=== PATIENT | female | born 1935 | race Caucasian/White ===

== ENCOUNTER 2017-07-15 16:15 | Emergency (ER) | payer OTHER ==
[~2017-07-15] VITALS: Ht 165.1 cm; Wt 125.6 kg
[~2017-07-15 16:15] MED LIST: ACET325 PO; ACET500 PO; ALBU3IS INH; ALBU3IS NEB; ALBU90OI6 INH; ALBU90OI61 INH; AMOCLA875 PO; AMOX500 PO; ASCO500 PO; ATEN25 PO; ATOR40TA PO; BISA10S PR; BROVANA; BUME1 PO; CHOL10002 PO; CIPR500 PO; CLOP75 PO; CRANBERRY450 MG PO; CVS DISPOSABLE399 ML PR; Clotrimazole-Be15 GM TOP; Colace100 MG PO; DOCU100 PO; FERR325 PO; FLUO10 PO; FLUSAL1005; FLUSAL2505 INH; FURO20 PO; Flagyl500 MG PO; HYDACE5 PO; HYDMETSO; IPRAIS NEB; LACT10SY PO; LEVEMIR FL100 UNIT/1 SC; LEVFLO500 PO; LEVO-T175 MCG; LEVSOD100 PO; LEVSOD175 PO; LORA10 PO; LORA10ER PO; LOSA25 PO; LOVA40 PO; Lovastatin20 MG PO; MESA400ER; METR500 PO; MULVITMIND PO; Milk Of Ma400 MG/5 M PO; NAPR550 PO; NATURAL BALANCE15 ML BOTHEYES; NEBULIZER; NITR100CA PO; OCUVITE EYE +1 EACH PO; OMEP10ER; OMEPRAZOLE MAGN20 MG PO; OXYACE5T PO; OXYACE7.5T PO; OXYGEN; Ocuvite Softge1 EAC1 PO; PIOG15; PIOG30 PO; POTCHL20ER; Prilosec Otc20 MG; Prozac20 MG; Prozac20 MG PO; RISE30; RXOXYACE PO; Synthroid175 MCG PO; THEO100ERA; THEO400; THEO400ER PO; THYR60; TIZANIDINE HCL2 MG PO; TRAM50 PO; TRIHYD5075; TRIHYD5075 PO; Tizanidine HCl2 MG; Ventolin Soln3 ML INH; Vitamin D2000 UNIT PO; ZINC15 PR; ZINC220 PO; ZINC50 MG PO; [UNRECOGNIZED DRUG - OTHER]
[2017-07-15] MEDS ORDERED: POTA10T PO (16:30)
[2017-07-15] MEDS ORDERED: Zithromax250 MG PO (18:46)
[2018-03-01] MEDS ORDERED: Hair, Skin & N1 EACH PO (14:33)
[2018-03-01] MEDS ORDERED: Advair Hfa 230-12 GM (14:36)
[2018-03-01] MEDS ORDERED: BUPR150ER PO (14:37)
[2018-03-01] MEDS ORDERED: CRANBERRY450 MG PO (14:40)
[2018-03-01] MEDS ORDERED: MONT10T PO (14:46)
[2018-03-01] MEDS ORDERED: Zanaflex2 M1 PO (14:47)
== END 2017-07-15 21:02 | disposition home or self-care (01) ==
LOC: ER 16:15
DX: J44.0 Chronic obstructive pulmonary disease with (acute) lower respiratory infection (principal); J18.9 Pneumonia, unspecified organism; I10 Essential (primary) hypertension; E11.9 Type 2 diabetes mellitus without complications; E78.00 Pure hypercholesterolemia, unspecified; E03.9 Hypothyroidism, unspecified; K21.9 Gastro-esophageal reflux disease without esophagitis; Z88.6 Allergy status to analgesic agent; Z88.2 Allergy status to sulfonamides; Z88.8 Allergy status to other drugs, medicaments and biological substances; Z88.1 Allergy status to other antibiotic agents; Z91.048 Other nonmedicinal substance allergy status; Z88.5 Allergy status to narcotic agent; Z79.899 Other long term (current) drug therapy; Z79.4 Long term (current) use of insulin; Z87.891 Personal history of nicotine dependence
CPT/HCPCS: 71046; 94640; 96365; 99283; J0456; J7050

== ENCOUNTER → 2017-08-03 | Outpatient (CLI) | payer OTHER ==
[~2017-08-03] MED LIST changes: +POTA10T PO; +Zithromax250 MG PO
[2017-08-03 06:37] LABS: Bilirubin, Urine Neg (Neg); Blood, Urine 5+ (Neg); Glucose Qualitative, Urine Neg (Neg); Ketones, Urine Neg (Neg); Leukocyte Esterase, Urine 3+ (Neg); Nitrite, Urine Neg (Neg); Protein, Urine 3+ (Neg); Urobilinogen, Urine NORM (Normal)
[2017-08-03 06:42] LABS: Appearance, Urine Cloudy (Clear); Color, Urine Yellow (P-Yellow)
[2017-08-03 06:44] LABS: Bacteria Many /hpf; Red Blood Cells, Urine TNTC /hpf (0-2); Squamous Epithelial Cells Mod /hpf (Few); Transitional Epithelial Cells Few /hpf (0-Rare)
[2017-08-03 06:45] LABS: White Blood Cells, Urine TNTC /hpf (0-5)
== END ==
LOC: LAB UVN 06:09 → EDSTATUS 09:54
PROVIDERS: Nurse Practitioner Family
DX: N39.0 Urinary tract infection, site not specified (principal)
CPT/HCPCS: 81001; 87077; 87086; 87186

== ENCOUNTER → 2017-08-21 | Outpatient (CLI) | payer OTHER ==
[2017-08-21 11:35] LABS: Source, Urine Clean Catch
[2017-08-21 11:47] LABS: Bilirubin, Urine Neg (Neg); Blood, Urine 5+ (Neg); Glucose Qualitative, Urine Neg (Neg); Ketones, Urine Neg (Neg); Leukocyte Esterase, Urine 3+ (Neg); Nitrite, Urine Pos (Neg); Protein, Urine 2+ (Neg); Specific Gravity, Urine 1.015 (1.003-1.022); Urobilinogen, Urine NORM (Normal)
[2017-08-21 11:54] LABS: Appearance, Urine Hazy (Clear); Color, Urine Yellow (P-Yellow)
[2017-08-21 11:58] LABS: Squamous Epithelial Cells Mod /hpf (Few); White Blood Cells, Urine TNTC /hpf (0-5)
[2017-08-21 11:59] LABS: Bacteria Many /hpf
== END ==
LOC: LAB UVN 11:33 → EDSTATUS 13:31
PROVIDERS: Nurse Practitioner Family
DX: N39.0 Urinary tract infection, site not specified (principal)
CPT/HCPCS: 81001; 87077; 87086; 87186

== ENCOUNTER → 2017-09-11 | Outpatient (CLI) | payer OTHER | LOC: LAB 11:39 → LAB SHORT 11:39 | DX: M16.9 Osteoarthritis of hip, unspecified (principal) | CPT/HCPCS: 87070; 87205 ==

== ENCOUNTER → 2017-09-24 | Outpatient (CLI) | payer OTHER ==
[2017-09-24 22:07] LABS: Source, Urine Catheter
[2017-09-24 22:10] LABS: Appearance, Urine Hazy (Clear); Bilirubin, Urine Neg (Neg); Blood, Urine 2+ (Neg); Color, Urine Yellow (P-Yellow); Glucose Qualitative, Urine Neg (Neg); Ketones, Urine Neg (Neg); Leukocyte Esterase, Urine 3+ (Neg); Nitrite, Urine Neg (Neg); Protein, Urine 1+ (Neg); Specific Gravity, Urine 1.015 (1.003-1.022); Urobilinogen, Urine NORM (Normal)
[2017-09-24 22:19] LABS: Bacteria Many /hpf; Red Blood Cells, Urine 0-2 /hpf (0-2); Squamous Epithelial Cells Mod /hpf (Few)
== END ==
LOC: EDSTATUS 11:55 → LAB UVN 21:00
PROVIDERS: Nurse Practitioner Family
DX: N39.0 Urinary tract infection, site not specified (principal)
CPT/HCPCS: 81001; 87077; 87086; 87186

== ENCOUNTER → 2018-01-10 | Outpatient (CLI) | payer OTHER ==
[2018-01-10 16:29] LABS: Source, Urine Clean Catch
[2018-01-10 16:38] LABS: Bilirubin, Urine Neg (Neg); Blood, Urine 5+ (Neg); Glucose Qualitative, Urine Neg (Neg); Ketones, Urine Neg (Neg); Leukocyte Esterase, Urine 2+ (Neg); Nitrite, Urine Neg (Neg); Protein, Urine 2+ (Neg); Urobilinogen, Urine NORM (Normal)
[2018-01-10 16:43] LABS: Appearance, Urine Cloudy (Clear); Color, Urine Yellow (P-Yellow)
[2018-01-10 16:45] LABS: White Blood Cells, Urine 50-100 /hpf (0-5)
[2018-01-10 16:46] LABS: Bacteria Many /hpf; Squamous Epithelial Cells Mod /hpf (Few)
== END ==
LOC: EDSTATUS 11:16 → LAB UVN 15:45
PROVIDERS: Nurse Practitioner Family
DX: R30.0 Dysuria (principal)
CPT/HCPCS: 81001; 87077; 87086; 87186

== ENCOUNTER → 2018-05-04 | Outpatient (CLI) | payer OTHER ==
[~2018-05-04] MED LIST changes: +Advair Hfa 230-12 GM; +BUPR150ER PO; +Hair, Skin & N1 EACH PO; +MONT10T PO; +Zanaflex2 M1 PO
[2018-05-04 14:39] LABS: Appearance, Urine Hazy (Clear); Bilirubin, Urine Neg (Neg); Blood, Urine 4+ (Neg); Color, Urine Yellow (P-Yellow); Glucose Qualitative, Urine Neg (Neg); Ketones, Urine Neg (Neg); Leukocyte Esterase, Urine 3+ (Neg); Nitrite, Urine Pos (Neg); Protein, Urine 2+ (Neg); Urobilinogen, Urine NORM (Normal)
[2018-05-04 14:50] LABS: White Blood Cells, Urine 25-50 /hpf (0-5)
[2018-05-04 14:52] LABS: Bacteria Few /hpf; Squamous Epithelial Cells Few /hpf (Few)
== END ==
LOC: EDSTATUS 10:34 → LAB UVN 14:22
PROVIDERS: Nurse Practitioner Family
DX: N39.0 Urinary tract infection, site not specified (principal)
CPT/HCPCS: 81001; 87077; 87086; 87186

== ENCOUNTER → 2018-05-16 | Outpatient (CLI) | payer OTHER ==
[2018-05-16 13:53] LABS: Source, Urine Clean Catch
[2018-05-16 14:04] LABS: Appearance, Urine Clear (Clear); Bilirubin, Urine Neg (Neg); Blood, Urine 1+ (Neg); Color, Urine Yellow (P-Yellow); Glucose Qualitative, Urine Neg (Neg); Ketones, Urine Neg (Neg); Leukocyte Esterase, Urine 3+ (Neg); Nitrite, Urine Neg (Neg); Protein, Urine Neg (Neg); Specific Gravity, Urine 1.015 (1.003-1.022); Urobilinogen, Urine NORM (Normal)
[2018-05-16 14:47] LABS: Bacteria Rare /hpf; Squamous Epithelial Cells Few /hpf (Few); White Blood Cells, Urine 25-50 /hpf (0-5)
== END ==
LOC: EDSTATUS 09:16 → LAB UVN 11:20
PROVIDERS: Nurse Practitioner Family
DX: N39.0 Urinary tract infection, site not specified (principal)
CPT/HCPCS: 81001; 87077; 87086; 87186

== ENCOUNTER → 2018-06-03 | Outpatient (CLI) | payer OTHER ==
[2018-06-03 18:58] LABS: Source, Urine Clean Catch
[2018-06-03 19:06] LABS: Appearance, Urine Hazy (Clear); Bilirubin, Urine Neg (Neg); Blood, Urine 3+ (Neg); Color, Urine Yellow (P-Yellow); Glucose Qualitative, Urine Neg (Neg); Ketones, Urine Neg (Neg); Leukocyte Esterase, Urine 3+ (Neg); Nitrite, Urine Pos (Neg); Protein, Urine 1+ (Neg); Urobilinogen, Urine NORM (Normal)
[2018-06-03 19:18] LABS: White Blood Cells, Urine TNTC /hpf (0-5)
[2018-06-03 19:19] LABS: Bacteria Many /hpf; Squamous Epithelial Cells Mod /hpf (Few)
== END ==
LOC: LAB UVN 17:55
PROVIDERS: Nurse Practitioner Family
DX: N39.0 Urinary tract infection, site not specified (principal)
CPT/HCPCS: 81001; 87077; 87086; 87186

== ENCOUNTER → 2018-06-16 | Outpatient (CLI) | payer OTHER ==
[2018-06-16 11:35] LABS: Source, Urine Clean Catch
[2018-06-16 12:18] LABS: Appearance, Urine Cloudy (Clear); Bilirubin, Urine Neg (Neg); Blood, Urine 3+ (Neg); Color, Urine Yellow (P-Yellow); Glucose Qualitative, Urine Neg (Neg); Ketones, Urine Neg (Neg); Leukocyte Esterase, Urine 3+ (Neg); Nitrite, Urine Pos (Neg); Protein, Urine 2+ (Neg); Specific Gravity, Urine 1.015 (1.003-1.022); Urobilinogen, Urine NORM (Normal)
[2018-06-16 13:15] LABS: White Blood Cells, Urine TNTC /hpf (0-5)
[2018-06-16 13:19] LABS: Bacteria Many /hpf; Squamous Epithelial Cells Mod /hpf (Few)
== END ==
LOC: LAB UVN 11:34 → EDSTATUS 12:40
PROVIDERS: Nurse Practitioner Family
DX: N39.0 Urinary tract infection, site not specified (principal)
CPT/HCPCS: 81001; 87077; 87086; 87186

== ENCOUNTER → 2018-06-19 | Outpatient (CLI) | payer OTHER | END | disposition home or self-care (01) | LOC: EDSTATUS 12:41 → LAB UVN 17:00 | DX: L98.9 Disorder of the skin and subcutaneous tissue, unspecified (principal) | CPT/HCPCS: 87070; 87205 ==

== ENCOUNTER → 2018-07-22 | Outpatient (CLI) | payer OTHER ==
[2018-07-22 15:20] LABS: Bilirubin, Urine Neg (Neg); Blood, Urine 2+ (Neg); Glucose Qualitative, Urine Neg (Neg); Ketones, Urine Neg (Neg); Leukocyte Esterase, Urine 3+ (Neg); Nitrite, Urine Neg (Neg); Protein, Urine Neg (Neg); Specific Gravity, Urine 1.015 (1.003-1.022); Urobilinogen, Urine NORM (Normal)
[2018-07-22 15:31] LABS: Appearance, Urine Hazy (Clear); Color, Urine Yellow (P-Yellow)
[2018-07-22 15:32] LABS: White Blood Cells, Urine 25-50 /hpf (0-5)
[2018-07-22 15:33] LABS: Amorphous Light (0-Heavy); Bacteria Few /hpf; Mucus Light (0-Heavy); Squamous Epithelial Cells Few /hpf (Few)
== END | disposition home or self-care (01) ==
LOC: EDSTATUS 09:31 → LAB UVN 14:57
DX: N39.0 Urinary tract infection, site not specified (principal)
CPT/HCPCS: 81001; 87077; 87086; 87186

== ENCOUNTER → 2018-11-17 | Outpatient (CLI) | payer OTHER ==
[2018-11-17 18:42] LABS: Source, Urine Clean Catch
[2018-11-17 18:53] LABS: Bilirubin, Urine Neg (Neg); Blood, Urine 3+ (Neg); Glucose Qualitative, Urine Neg (Neg); Ketones, Urine Neg (Neg); Leukocyte Esterase, Urine 3+ (Neg); Nitrite, Urine Pos (Neg); Protein, Urine Neg (Neg); Urobilinogen, Urine NORM (Normal)
[2018-11-17 19:04] LABS: Appearance, Urine Clear (Clear); Color, Urine Yellow (P-Yellow); White Blood Cells, Urine TNTC /hpf (0-5)
[2018-11-17 19:05] LABS: Bacteria Mod /hpf; Squamous Epithelial Cells Few /hpf (Few)
== END | disposition home or self-care (01) ==
LOC: EDSTATUS 13:34 → LAB UVN 18:39
DX: N39.0 Urinary tract infection, site not specified (principal)
CPT/HCPCS: 81001; 87077; 87086; 87186

== ENCOUNTER → 2018-11-29 | Outpatient (CLI) | payer OTHER ==
[2018-11-29 11:56] LABS: Bilirubin, Urine Neg (Neg); Blood, Urine 2+ (Neg); Glucose Qualitative, Urine Neg (Neg); Ketones, Urine Neg (Neg); Leukocyte Esterase, Urine 3+ (Neg); Nitrite, Urine Pos (Neg); Protein, Urine Neg (Neg); Urobilinogen, Urine NORM (Normal)
[2018-11-29 12:16] LABS: Appearance, Urine Hazy (Clear); Color, Urine Yellow (P-Yellow)
[2018-11-29 12:17] LABS: White Blood Cells, Urine 50-100 /hpf (0-5)
[2018-11-29 12:18] LABS: Bacteria Many /hpf; Squamous Epithelial Cells Mod /hpf (Few)
[2018-11-29 12:19] LABS: Transitional Epithelial Cells Rare /hpf (0-Rare)
== END | disposition home or self-care (01) ==
LOC: LAB UVN 11:38 → EDSTATUS 15:17
DX: N39.0 Urinary tract infection, site not specified (principal)
CPT/HCPCS: 81001; 87086

== ENCOUNTER → 2018-12-02 | Outpatient (CLI) | payer OTHER ==
[2018-12-02 08:09] LABS: Appearance, Urine Cloudy (Clear); Bilirubin, Urine Neg (Neg); Blood, Urine 5+ (Neg); Color, Urine Yellow (P-Yellow); Glucose Qualitative, Urine Neg (Neg); Ketones, Urine Neg (Neg); Leukocyte Esterase, Urine 3+ (Neg); Nitrite, Urine Pos (Neg); Protein, Urine 2+ (Neg); Specific Gravity, Urine 1.015 (1.003-1.022); Urobilinogen, Urine NORM (Normal)
[2018-12-02 08:41] LABS: White Blood Cells, Urine TNTC /hpf (0-5)
[2018-12-02 08:42] LABS: Bacteria Many /hpf; Squamous Epithelial Cells Mod /hpf (Few)
[2018-12-02 08:43] LABS: Transitional Epithelial Cells Rare /hpf (0-Rare)
== END | disposition home or self-care (01) ==
LOC: LAB UVN 06:26 → EDSTATUS 15:18
DX: N39.0 Urinary tract infection, site not specified (principal); R30.0 Dysuria
CPT/HCPCS: 81001; 87077; 87086; 87186

== ENCOUNTER → 2018-12-19 | Outpatient (CLI) | payer OTHER ==
[2018-12-19 14:40] LABS: Bilirubin, Urine Neg (Neg); Blood, Urine 4+ (Neg); Glucose Qualitative, Urine Neg (Neg); Ketones, Urine Neg (Neg); Leukocyte Esterase, Urine 3+ (Neg); Nitrite, Urine Pos (Neg); Protein, Urine 2+ (Neg); Urobilinogen, Urine NORM (Normal)
[2018-12-19 15:07] LABS: Appearance, Urine Cloudy (Clear); Color, Urine Yellow (P-Yellow)
[2018-12-19 15:10] LABS: Bacteria Many /hpf; Squamous Epithelial Cells Rare /hpf (Few); White Blood Cells, Urine TNTC /hpf (0-5)
== END | disposition home or self-care (01) ==
LOC: EDSTATUS 12:38 → LAB UVN 14:24
DX: N39.0 Urinary tract infection, site not specified (principal)
CPT/HCPCS: 81001; 87077; 87086; 87186

== ENCOUNTER 2019-03-30 09:21 | Inpatient (IN) | payer OTHER ==
[~2019-03-30] VITALS: Ht 154.9 cm; Wt 113.4 kg
[~2019-03-30 09:21] MED LIST changes: -ALBU3IS NEB; +ARTIFICIAL TEAR15 M2 BOTHEYES; +BUPR100 PO; -BUPR150ER PO; +COLACE CLEAR50 MG PO; +FERSU300 PO; +FLUT1DIS5 INH; +LORATADINE10 MG PO; -NATURAL BALANCE15 ML BOTHEYES; +THERA-D2000 UNIT PO; +ZINC50 M2 PO; -ZINC50 MG PO
[2019-03-30 09:55] LABS: BASOPHILS ABSOLUTE AUTO 0.03 K/mm3 (0.00-0.23); BASOPHILS PERCENT AUTO 0 % (0-2); EOSINOPHILS PERCENT AUTO 0 % (0-6); Hematocrit 38.8 % (33.0-51.0); Hemoglobin 10.8 g/dL (11.5-16.0); IMMATURE GRAN ABSOLUTE AUTO 0.06 K/mm3 (0.00-0.10); IMMATURE GRAN PERCENT AUTO 0 % (0-1); LYMPHOCYTES ABSOLUTE AUTO 0.91 K/mm3 (0.84-5.20); LYMPHOCYTES PERCENT AUTO 7 % (21-46); MONOCYTES ABSOLUTE AUTO 0.69 K/mm3 (0.16-1.47); MONOCYTES PERCENT AUTO 5 % (4-13); Mean Corpuscular HGB 26.5 pg (26.0-34.0); Mean Corpuscular HGB Conc 27.8 g/dL (31.5-36.5); Mean Corpuscular Volume 95 fL (80-100); NEUTROPHILS ABSOLUTE AUTO 11.89 K/mm3 (1.96-9.15); NEUTROPHILS PERCENT AUTO 88 % (41-73); Platelet Count 318 K/mm3 (150-400); RDW Coefficient Variation 14.8 % (11.7-14.2); RDW Standard Deviation 51.9 fL (35.1-46.3); Red Blood Cell Count 4.07 M/mm3 (3.80-5.20); White Blood Cell Count 13.58 K/mm3 (4.00-11.30)
[2019-03-30 10:04] LABS: PO2 Arterial 66.6 mmHg (80-100)
[2019-03-30 10:05] LABS: PCO2 Arterial 87 mmHg (35-45); pH Blood Arterial 7.29 (7.35-7.45)
[2019-03-30 10:09] LABS: Source, Urine Catheter
[2019-03-30 10:15] LABS: Bilirubin, Urine Neg (Neg); Blood, Urine 4+ (Neg); Glucose Qualitative, Urine Neg (Neg); Ketones, Urine 1+ (Neg); Leukocyte Esterase, Urine 3+ (Neg); Nitrite, Urine Neg (Neg); Protein, Urine 3+ (Neg); Specific Gravity, Urine 1.025 (1.003-1.022); Urobilinogen, Urine 2+ (Normal)
[2019-03-30 10:16] LABS: Albumin, Blood 2.6 g/dL (3.4-5.0); Albumin/Globulin Ratio 0.5 (0.8-1.8); Bilirubin, Total 0.2 mg/dL (0.1-1.0); Bun/Creatinine Ratio 18.9 (12.0-20.0); Calcium, Blood 9.7 mg/dL (8.5-10.1); Creatinine, Blood 1.22 mg/dL (0.40-1.00); Globulin, Blood 5.7 g/dL (2.2-4.0); Potassium, Blood 4.6 mmol/L (3.5-5.5); Total Protein, Blood 8.3 g/dL (6.4-8.2); Troponin I 0.177 ng/mL (0.000-0.040)
[2019-03-30 10:18] LABS: Influenza A Negative (NEGATIVE); Influenza B Negative (NEGATIVE)
[2019-03-30 10:23] LABS: Appearance, Urine Hazy (Clear); Color, Urine Yellow (P-Yellow)
[2019-03-30 10:25] LABS: Bacteria Many /hpf; Squamous Epithelial Cells Mod /hpf (Few); White Blood Cells, Urine TNTC /hpf (0-5)
[2019-03-30 10:28] LABS: Amorphous Mod (0-Heavy); Transitional Epithelial Cells Rare /hpf (0-Rare)
[2019-03-30] MEDS ORDERED: ALBU90OI INH (10:33)
[2019-03-30] MEDS ORDERED: MIRALAX17 GM PO (10:34)
[2019-03-30] MEDS ORDERED: ACET325 PO ×2 (10:34→12:33)
[2019-03-30] MEDS ORDERED: BISA10S PR (10:35)
[2019-03-30] MEDS ORDERED: MILK OF MA400 MG/5 M PO (10:35)
[2019-03-30] MEDS ORDERED: METO25ER PO (10:36)
[2019-03-30] MEDS ORDERED: Fleet Enema132 ML PR (10:36)
[2019-03-30] MEDS ORDERED: C-1000 WITH R1000 MG PO (12:13)
[2019-03-30] MEDS ORDERED: ALBU3IS NEB (12:33)
[2019-03-30] MEDS ORDERED: TRAM50 PO (12:33)
[2019-03-30 12:34] LABS: PCO2 Arterial 72.6 mmHg (35-45); PO2 Arterial 89.9 mmHg (80-100); pH Blood Arterial 7.37 (7.35-7.45)
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
--- NOTE | 2019-03-30 15:20 | NUR ---
ER ADMIT PT REPORT RECEIVEDF ROM ER. PT ARRIVED VIA BED ACCOMPANIED BY RN AND R/T. PT AWAKE AND TALKING ON 4L NC. PT SLIDE TO NEW BED WITH 5 ASSIST AND SLIDER SHEET. PT CLEANED UP. OLD LINENS REMOVED. BED BATH GIVEN. EARS FULL OF STUFF. CLEANED. FOLDS AND PHILIPP AREA INTACT. AFTER BED BATH. PLACED ON BIPAP. TOLERATED WELL. CONTINUE POT.
--- NOTE | 2019-03-30 21:58 | NUR ---
CARE ASSUMPTION PT ALERT, ANSWERING SOME Q's. PT NOT WANTING TO BE HERE STATING "YOU CAN'T HOLD ME CAPTIVE." PT LAYING ON L SIDE NOT WANTING TO MOVE OR BE MOVED. PT UNCOMFORTABLE W/ BIPAP, CONTINUALLY FIDGETING W/ MASK. PALOMINO CATH PATENT AND DRAINING. ATTENDS IN PLACE. WILL CONTINUE TO MONITOR AND PROVIDE CARE.
[2019-03-31 03:56] LABS: BASOPHILS ABSOLUTE AUTO 0.03 K/mm3 (0.00-0.23); BASOPHILS PERCENT AUTO 0 % (0-2); EOSINOPHILS PERCENT AUTO 0 % (0-6); Hematocrit 34.3 % (33.0-51.0); Hemoglobin 9.7 g/dL (11.5-16.0); IMMATURE GRAN ABSOLUTE AUTO 0.05 K/mm3 (0.00-0.10); IMMATURE GRAN PERCENT AUTO 0 % (0-1); LYMPHOCYTES ABSOLUTE AUTO 0.74 K/mm3 (0.84-5.20); LYMPHOCYTES PERCENT AUTO 6 % (21-46); MONOCYTES ABSOLUTE AUTO 0.83 K/mm3 (0.16-1.47); MONOCYTES PERCENT AUTO 7 % (4-13); Mean Corpuscular HGB 26.5 pg (26.0-34.0); Mean Corpuscular HGB Conc 28.3 g/dL (31.5-36.5); Mean Corpuscular Volume 94 fL (80-100); Mean Platelet Volume 9.9 fL (9.1-12.4); NEUTROPHILS ABSOLUTE AUTO 10.72 K/mm3 (1.96-9.15); NEUTROPHILS PERCENT AUTO 87 % (41-73); Platelet Count 291 K/mm3 (150-400); RDW Coefficient Variation 14.8 % (11.7-14.2); RDW Standard Deviation 50.9 fL (35.1-46.3); Red Blood Cell Count 3.66 M/mm3 (3.80-5.20); White Blood Cell Count 12.37 K/mm3 (4.00-11.30)
[2019-03-31 04:21] LABS: Bun/Creatinine Ratio 25.5 (12.0-20.0); Calcium, Blood 9.2 mg/dL (8.5-10.1); Creatinine, Blood 1.1 mg/dL (0.40-1.00); Potassium, Blood 3.9 mmol/L (3.5-5.5)
--- NOTE | 2019-03-31 05:50 | NUR ---
SHIFT SUMMARY PT MORE ALERT, PLEASANT & COOPERATIVE. VSS. PT TOLERATING BIPAP 16/6, FIO2 40% TITRATED TO 35% THIS SHIFT. PALOMINO CATH PATENT AND DRAINING OMAIRA COLORED URINE. PT INCONTINENT OF STOOL W/ 1 DARK BROWN/BLACK BM THIS SHIFT. ATTENDS IN PLACE. PT REFUSING REPOSIONING OFF OF L SIDE INITIALLY, THEN AGREEABLE TO POSITION CHANGES. PT W/ TENDENCY TO LEAN BACK TO L SIDE DESPITE REPOSITIONING TO R SIDE W/ PILLOWS. PT DIFFICULTY MOVING SELF, REQUIRING 2 PERSON MAX ASSIST ROLLING IN BED. WILL CONTINUE TO MONITOR AND PROVIDE CARE UNTIL REPORT OFF TO DAY SHIFT RN.
--- NOTE | 2019-03-31 10:19 | NUR ---
MORNING NOTE ASUMED CARE OF PATIENT AT 0700, PT LYING IN BED WITH BIPAP MASK ON AND EYES CLOSED, REGULAR BREATHS. AT AROUND 0830 PT SEEN BY SPEECH THERAPY FOR EVAL, RESULTING IN PATIENT'S DIET BEING CHANGED TO THICKENED LIQUIDS AND PUREED FOOD. ALL MORNING MEDS THAT COULD BE CRUSHED WERE GIVEN SUCH IN APLESAUCE, OTHERS GIVEN WHOLE IN APPLESAUCE AND APPARENTLY TOLERATED WELL ENOUGH. PATIENT IS MODERATELY SUCCESSFUL AT SUCTIONING HER OWN SECRETIONS, BUT NOT ABLE TO FULL COUGH THEM UP.
--- NOTE | 2019-03-31 19:00 | NUR ---
SHIFT SUMMARY ASSUMED CARE OF PATIENT AT 0700 HOURS, PATIENT DOZING IN BED WEARING BIPAP MASK APPROPRIATELY. MEDICATED AND TREATED PATIENT PER UNIT PROTOCOL AND MD ORDER (SEE EMAR), INCLUDING FREQUENT POSITION CHANGES AND ORAL CARE/SUCTIONING OF SECRETIONS. PT IS NOT ABLE TO FEED HERSELF AT BASELINE, HOWEVER WHE WAS ABLE TO SELF SUCTION SECRETIONS APPROPRIATELY THROUGHOUT THE SHIFT WITH MILD ASSISTANCE AND OBSERVATION. BIPAP REMOVED AT AROUND 0900, PATIENT MAINTAINED O2 SATS ABOVE 90% ON 4L VIA NC THROUGHOUT SHIFT. PATIENT WAS MOVED FROM [facility] TO [facility] TO TAKE ADVANTAGE OF THE OVERHEAD LIFT. PATIENT WAS TRANSFERRED TO HER RECLINER FOR LUNCH AND REMAINED THERE THROUGHOUT DINNER, WITH ROUTINE POSITION CHANGES, AND TRANSFERRED BACK T0 BED AT 1645. ALL TRANSFERS WITH OVERHEAD LIFT. PATIENT WAS COOPERATIVE WITH ALL INTERVENTIONS. CARE AND REPORT GIVEN TO ONCOMING SHIFT AT 1900, PATIENT AWAKE IN BED WITH NO ISSUES, CALL LIGHT W/IN REACH, BED LOCKED AND LOW.
[2019-04-01 04:10] LABS: BASOPHILS ABSOLUTE AUTO 0.02 K/mm3 (0.00-0.23); BASOPHILS PERCENT AUTO 0 % (0-2); EOSINOPHILS PERCENT AUTO 0 % (0-6); Hematocrit 33.4 % (33.0-51.0); Hemoglobin 9.5 g/dL (11.5-16.0); IMMATURE GRAN ABSOLUTE AUTO 0.04 K/mm3 (0.00-0.10); IMMATURE GRAN PERCENT AUTO 0 % (0-1); LYMPHOCYTES ABSOLUTE AUTO 0.76 K/mm3 (0.84-5.20); LYMPHOCYTES PERCENT AUTO 6 % (21-46); MONOCYTES ABSOLUTE AUTO 0.86 K/mm3 (0.16-1.47); MONOCYTES PERCENT AUTO 7 % (4-13); Mean Corpuscular HGB 26.8 pg (26.0-34.0); Mean Corpuscular HGB Conc 28.4 g/dL (31.5-36.5); Mean Corpuscular Volume 94 fL (80-100); Mean Platelet Volume 9.9 fL (9.1-12.4); NEUTROPHILS ABSOLUTE AUTO 10.17 K/mm3 (1.96-9.15); NEUTROPHILS PERCENT AUTO 86 % (41-73); Platelet Count 321 K/mm3 (150-400); RDW Coefficient Variation 14.9 % (11.7-14.2); RDW Standard Deviation 51.9 fL (35.1-46.3); Red Blood Cell Count 3.55 M/mm3 (3.80-5.20); White Blood Cell Count 11.85 K/mm3 (4.00-11.30)
[2019-04-01 04:39] LABS: Anion Gap 4 mmol/L (6-16); Blood Urea Nitrogen 28 mg/dL (8-24); Bun/Creatinine Ratio 30.1 (12.0-20.0); CO2, Blood 36 mmol/L (21-32); Calcium, Blood 9.1 mg/dL (8.5-10.1); Chloride, Blood 101 mmol/L (98-108); Creatinine, Blood 0.93 mg/dL (0.40-1.00); Glomerular Filtration Rate >60 (60-); Glucose, Blood 138 mg/dL (70-99); Magnesium, Blood 1.9 mg/dL (1.6-2.4); Potassium, Blood 3.2 mmol/L (3.5-5.5); Sodium, Blood 141 mmol/L (136-145)
--- NOTE | 2019-04-01 07:26 | NUR ---
a+o, but drifts off and speaks indistinkly, using oral suction to clear mucus, call light in reach, 3L via nc refused cpap, frequent repositioning with as much of the L up as she was comfortabl with, medicated in , cooperative with care, bsr shared with pt and day staff
[2019-04-02 04:17] LABS: Anion Gap 2 mmol/L (6-16); Blood Urea Nitrogen 27 mg/dL (8-24); Bun/Creatinine Ratio 28.5 (12.0-20.0); CO2, Blood 38 mmol/L (21-32); Chloride, Blood 104 mmol/L (98-108); Creatinine, Blood 0.95 mg/dL (0.40-1.00); Glomerular Filtration Rate >60 (60-); Glucose, Blood 120 mg/dL (70-99); Potassium, Blood 3.7 mmol/L (3.5-5.5); Sodium, Blood 144 mmol/L (136-145)
--- NOTE | 2019-04-02 07:21 | NUR ---
no significant medical changes observed during shift, call light and suction in reach, bipap tried for about an hour same as the previous night then forceably removed, repositioned frequently, continues to be hard to understand but able to make needs known
--- NOTE | 2019-04-02 19:43 | NUR ---
SHIFT SUMMARY. ASSUMED CARE OF PT AT 0700, PATIENT RESTING IN BED EYES CLOSED RECEIVING BREATHING TREATMENT. PT WAS EASILY ROUSABLE BY VOICE, AND COOPERATIVE WITH ALL INTERVENTIONS THROUGHOUT SHIFT. PATIENT WAS POSITIONED AND REPOSITIONED PER UNIT PROTOCOL IN COMBO WITH PT WISHES. PATIENT STATES SHE IS NOT ABLE TO LIFT HER ARMS AT THE ELBOWS, AND REQUIRED PASSIVE ROM AT ELBOW IN ORDER TO WASH HER FACE. 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 PT EXHIBITED SOME CONFUSION AT TIMES, LOSING UNDERSTANDING OF HER RESP AIDS FOR BRIEF PERIODS, BUT REMAINED TEACHABLE. O2 SATURATION WAS NOT MAINTAINED ABOVE 90% FOR THE ENTIRE SHIFT, PT WOULD FORGET TO BREATHE THROUGH HER NOSE (UTILIZING O2 SUPPLEMENTATION), AND SOMETIMES OVER-UTILIZED HER SUCTION DEVICE WHICH PROMOTED MOUTH-BREATHING. PATIENT WAS TRANSFERRED VIA OVERHEAD LIFT BY TWO PERSONNEL WITHOUT ISSUES. CARE AND REPORT GIVEN TO ONCOMING SHIFT AT 1900, PT'S BED LOCKED AND LOW, CALL LIGHT W/IN REACH, NO ISSUES PER PATIENT.
--- NOTE | 2019-04-03 03:15 | NUR ---
shared bsr with pt and day staff at 1900, remains at communications baseline, 7L via hi flow NC, frequent repositioning and adjusting, currently on bipap but alarm continues to sound, o2 remaining above 90 on pulseops, medication crushed in , cooperative with care, bed in low position, bipap adjusted by RT to improve pt service, will continue to monitor and treat until bsr shared with staff and pt
[2019-04-03 04:06] LABS: BASOPHILS ABSOLUTE AUTO 0.03 K/mm3 (0.00-0.23); BASOPHILS PERCENT AUTO 0 % (0-2); EOSINOPHILS ABSOLUTE AUTO 0.07 K/mm3 (0.00-0.68); EOSINOPHILS PERCENT AUTO 1 % (0-6); Hematocrit 33.8 % (33.0-51.0); Hemoglobin 9.6 g/dL (11.5-16.0); IMMATURE GRAN ABSOLUTE AUTO 0.04 K/mm3 (0.00-0.10); IMMATURE GRAN PERCENT AUTO 0 % (0-1); LYMPHOCYTES ABSOLUTE AUTO 0.74 K/mm3 (0.84-5.20); LYMPHOCYTES PERCENT AUTO 7 % (21-46); MONOCYTES ABSOLUTE AUTO 0.76 K/mm3 (0.16-1.47); MONOCYTES PERCENT AUTO 7 % (4-13); Mean Corpuscular HGB 26.7 pg (26.0-34.0); Mean Corpuscular HGB Conc 28.4 g/dL (31.5-36.5); Mean Corpuscular Volume 94 fL (80-100); Mean Platelet Volume 9.8 fL (9.1-12.4); NEUTROPHILS ABSOLUTE AUTO 8.81 K/mm3 (1.96-9.15); NEUTROPHILS PERCENT AUTO 84 % (41-73); Platelet Count 306 K/mm3 (150-400); RDW Coefficient Variation 15.2 % (11.7-14.2); RDW Standard Deviation 53.2 fL (35.1-46.3); Red Blood Cell Count 3.59 M/mm3 (3.80-5.20); White Blood Cell Count 10.45 K/mm3 (4.00-11.30)
[2019-04-03 04:25] LABS: Anion Gap 3 mmol/L (6-16); Blood Urea Nitrogen 24 mg/dL (8-24); Bun/Creatinine Ratio 28.4 (12.0-20.0); CO2, Blood 37 mmol/L (21-32); Chloride, Blood 105 mmol/L (98-108); Creatinine, Blood 0.84 mg/dL (0.40-1.00); Glomerular Filtration Rate >60 (60-); Glucose, Blood 135 mg/dL (70-99); Potassium, Blood 3.5 mmol/L (3.5-5.5); Sodium, Blood 145 mmol/L (136-145)
--- NOTE | 2019-04-03 06:21 | NUR ---
a+o at baseline, repositioned, call light and suction in reach, incentive sperometer use encouraged, abx infusing with no s/sx of infection or infiltration, bipap used for only a short time, hfnc at 7L kept o2 above 89%. will continue to monitor and treat until bsr shared with pt and day staff
[2019-04-03 07:28] LABS: PCO2 Arterial 56.5 mmHg (35-45); PO2 Arterial 59.9 mmHg (80-100); pH Blood Arterial 7.45 (7.35-7.45)
--- NOTE | 2019-04-03 09:17 | NUR ---
AWDANNIELLE MEDS FROM PHARMACY
--- NOTE | 2019-04-03 17:24 | NUR ---
*SHIFT NOTE* PT ALERT, CONFUSED WITH ANGRY DEMEANOR T/O SHIFT TODAY. REMAINS WITH GARBLED SPEECH, INTERMITTENTLY CAN MAKE OUT WHAT PT IS TRYING TO SAY. PT HAS BEEN SELF SUCTIONING IN ROOM ALL DAY TO EXCESS BUT REFUSES TO DECREASE FREQUENCY OF USE. PT REMAINS AT NECTAR THICK DIET, HAS BEEN UP TO [facility] FOR ALL MEALS AND FED. WAS BACKED DOWN TO 4L O2 VIA NASAL CANNULA WITH SPO2 OF 91%. PT HAD SMALL MELO COLORED BM TODAY TAHT WAS SOFT, WILL CONSIDER HOLDING STOOOL SOFTENEERS IN THE AM. OTHERSWISE NO ACUTE CHANGES DURING THIS SHIFT
--- NOTE | 2019-04-03 19:15 | NUR ---
BEDSIDE REPORT REC'D FROM MAVIS MORALES. ASSISTED WITH O.H. LIFT TRANSFER BACK TO BED. PT TERRI WELL. IV ABX INFUSING WELL. 4L O2 NC IN PLACE. VSS. ASSESSMENT NOTED. PT POSITIONED IN BED FOR COMFORT. CALL LIGHT IN REACH. PT DENIES ANY ADD'L NEEDS AT THIS TIME.
--- NOTE | 2019-04-04 03:07 | NUR ---
PT SLEEPING. AWAKENS OCCASIONALLY AND SELF SUCTIONS. HAS NO PROBLEMS LETTING STAFF KNOW WHEN SHE NEEDS TO BE REPOSITIONED.
--- NOTE | 2019-04-04 06:27 | NUR ---
SHIFT SUMMARY NO SIG CHANGES THIS SHIFT. PT SLEPT MOST OF THE NIGHT. REPOSITIONED SEVERAL TIMES AND CLEANED BY CAGE MANAGER'S X2. MEDS GIVEN ORDERED. SUCTIONS SELF. NADN AT THIS TIME. WILL CONT TO MONITOR AND GIVE AM MEDS PRIOR TO REPORT TO DAYSHIFT RN. CALL LIGHT IN REACH. DOES NOT USE, WILL WATCH.
--- NOTE | 2019-04-04 13:24 | NUR ---
REPORT TO ELSIE MORALES ONMEDICAL FLOOR
--- NOTE | 2019-04-04 16:08 | NUR ---
PCU TRANFER- PT ARRIVED TO ROOM 311 VIA BED FROM PCU. PT A/O TO PERSON AND PLACE. PT DENIES ANY COMPLAINTS AT THIS TIME BUT DOES REPORT OCC DISCOMFORT WITH PALOMINO. LS DIMINISHED, ON 3L N/C, SUCTION SET UP AT BEDSIDE. 1+ BLE EDEMA. PALOMINO PATENT AND DRAINING. MEDS GIVEN CRUSHED VIA PUDDING. PT REPOSITIONED WITH ENCOURAGED TO LIE ON RIGHT SIDE PER ORDERS. PT ORIENTED TO ROOM AND CALL SYSTEM, CALL LIGHT AND SUCTION WITHIN REACH.
--- NOTE | 2019-04-05 06:13 | NUR ---
SHIFT SUMMARY PT HAS RESTED FOR MOST OF THE NIGHT. PT PAINFUL WITH MOVEMENT, BUT COMFORTABLE AT REST. SHE REFUSED CHEST PT, AND HER CPAP, BUT WAS AGREEABLE TO USE HER FLUTTER VALVE. PALOMINO IN PLACE PATENT AND DRAINING, URINE DARK YELLOW WITH HEAVY AMOUNTS OF SEDIMENT. PT TOLERATES MEDS CRUSHED IN APPLESAUCE, ASPIRATION PRECUATIONS MAINTAINED. YANKER SUCTION AT BEDSIDE. NO ACUTE CHANGES TO REPORT. PT ASSESSMENT REMAINS UNCHANGED. BED IN LOWEST POSITION, CALL LIGHT WITHIN REACH.
--- NOTE | 2019-04-05 16:42 | NUR ---
SHIFT SUMMARY- PT A/O, PLEASANT AND COOPERATIVE. PT DENIES ANY COMPLAINTS T/O THE DAY. LS DIMINISHED, ON 3-4L N/C, OCC PRODUCTIVE COUGH, PT SUCTIONS INDEP. PALOMINO PATENT AND DRAINING OMAIRA URINE WITH SEDIMENT, LITTLE URINE OUTPUT TODAY. PT HOME LASIX RESUMED. 2+ BLE EDEMA. PT NOTED TO HAVE SOME GREEN VAGINAL DISCHARGE. NO OTHER ACUTE CHANGES THIS SHIFT. POSSIBLE D/C BACK TO [facility].
--- NOTE | 2019-04-06 05:02 | NUR ---
SHIFT SUMMARY PT HAS RESTED T/O THE NIGHT, THERE HAVE BEEN NO ACUTE CHANGES IN HER ASSESSMENT. LARGE INCONTINENT BM THIS SHIFT. PT WANTED TO CONTINUE HER STOOL SOFTNERS HS DESPITE THIS. PT DOES NOT MIND THICKENED LIQUIDS AND REQUEST PLENTY TO DRINK. PALOMINO IN PLACE PATENT AND DRAINING PLAN IS FOR DC TODAY BACK TO [facility]. BED IN LOWEST POSITION, CALL LIGHT WITHIN REACH. WILL CONTINUE TO MONITOR AND REPORT TO ONCOMING RN.
[2019-04-06] MEDS ORDERED: CEFP200 PO (13:51)
[2019-04-06] MEDS ORDERED: GUAI600T33 PO (13:51)
--- NOTE | 2019-04-07 08:49 | NUR ---
RN REMOVED THIS PATIENT'S PALOMINO CATHETER AT 1400 ON 04/06/19. PATIENT TOLERATED IT WELL. PATIENT WAS LATER DISCHARGED TO [facility].
== END 2019-04-06 16:17 | DRG 698 ==
LOC: ER 09:21 → MEDS 13:32 → PCU 13:32 → MEDS 04-04 14:59 → ENPENDDIS 04-06 13:17 → MEDS 04-06 16:17
PROVIDERS: Emergency Medicine; Internal Medicine Critical Care Medicine; ADMIT Internal Medicine
PROC: 5A09357 Assistance with Respiratory Ventilation, Less than 24 Consecutive Hours, Continuous Positive Airway Pressure (ICD-10-PCS; principal; 2019-03-30)
DX: T83.511A Infection and inflammatory reaction due to indwelling urethral catheter, initial encounter (principal); J96.21 Acute and chronic respiratory failure with hypoxia; J96.22 Acute and chronic respiratory failure with hypercapnia; R65.20 Severe sepsis without septic shock; E87.2 Acidosis; J44.1 Chronic obstructive pulmonary disease with (acute) exacerbation; N17.9 Acute kidney failure, unspecified; J98.11 Atelectasis; Z68.42 Body mass index [BMI] 45.0-49.9, adult; Z66 Do not resuscitate; M81.0 Age-related osteoporosis without current pathological fracture; E03.9 Hypothyroidism, unspecified; K22.70 Barrett's esophagus without dysplasia; Z87.891 Personal history of nicotine dependence; E66.01 Morbid (severe) obesity due to excess calories; K21.9 Gastro-esophageal reflux disease without esophagitis; Z86.73 Personal history of transient ischemic attack (TIA), and cerebral infarction without residual deficits; Z96.641 Presence of right artificial hip joint; G47.33 Obstructive sleep apnea (adult) (pediatric); I10 Essential (primary) hypertension; E86.0 Dehydration; J98.09 Other diseases of bronchus, not elsewhere classified; B96.20 Unspecified Escherichia coli [E. coli] as the cause of diseases classified elsewhere
CPT/HCPCS: 36415; 36600; 51702; 71045; 71046; 71260; 80048; 80053; 81001; 82803; 83605; 83735; 83880; 84484; 85025; 87040; 87070; 87077; 87086; 87186; 87205; 87804; 92526; 92610; 93005; 93010; 94010; 94640; 94660; 94664; 94667; 94760; 94762; 96365-59; 96366-59; 98960; 99285-25; 99406; A9270; J0696; J1650; J1956; J7030; Q9967

== ENCOUNTER 2019-04-20 21:48 | Inpatient (IN) | payer OTHER ==
[~2019-04-20] VITALS: Ht 170.2 cm; Wt 114.6 kg
[~2019-04-20 21:48] MED LIST changes: +ALBU3IS NEB; +ALBU90OI INH; +C-1000 WITH R1000 MG PO; +CEFD300 PO; +CEFP200 PO; +Fleet Enema132 ML PR; +GUAI600T33 PO; +METO25ER PO; +MILK OF MA400 MG/5 M PO; +MIRALAX17 GM PO
[2019-04-20 23:00] LABS: Calcium, Ionized (POC) 0.98 mmol/L (1.10-1.46); Chloride (POC) 94 mmol/L (98-108); Creatinine (POC) 0.8 mg/dL (0.6-1.0); Glucose (ISTAT POC) 132 mg/dL (70-99); Hemoglobin (POC) 10.9 g/dL (12.0-16.0); Potassium (POC) 4.3 mmol/L (3.5-5.5); Sodium (POC) 137 mmol/L (135-148); Total CO2 (POC) 45 mmol/L (21-32)
[2019-04-20 23:34] LABS: PCO2 Arterial 88 mmHg (35-45); PO2 Arterial 76.1 mmHg (80-100); pH Blood Arterial 7.33 (7.35-7.45)
[2019-04-21 01:08] LABS: BASOPHILS ABSOLUTE AUTO 0.02 K/mm3 (0.00-0.23); BASOPHILS PERCENT AUTO 0 % (0-2); EOSINOPHILS PERCENT AUTO 2 % (0-6); Hematocrit 36.2 % (33.0-51.0); Hemoglobin 10.2 g/dL (11.5-16.0); IMMATURE GRAN ABSOLUTE AUTO 0.02 K/mm3 (0.00-0.10); IMMATURE GRAN PERCENT AUTO 0 % (0-1); LYMPHOCYTES ABSOLUTE AUTO 0.76 K/mm3 (0.84-5.20); LYMPHOCYTES PERCENT AUTO 12 % (21-46); MONOCYTES ABSOLUTE AUTO 0.51 K/mm3 (0.16-1.47); MONOCYTES PERCENT AUTO 8 % (4-13); Mean Corpuscular HGB 25.8 pg (26.0-34.0); Mean Corpuscular HGB Conc 28.2 g/dL (31.5-36.5); Mean Platelet Volume 9.6 fL (9.1-12.4); NEUTROPHILS ABSOLUTE AUTO 5.04 K/mm3 (1.96-9.15); NEUTROPHILS PERCENT AUTO 78 % (41-73); Platelet Count 285 K/mm3 (150-400); RDW Coefficient Variation 14.8 % (11.7-14.2); RDW Standard Deviation 49.8 fL (35.1-46.3); Red Blood Cell Count 3.96 M/mm3 (3.80-5.20); White Blood Cell Count 6.45 K/mm3 (4.00-11.30)
[2019-04-21 01:09] LABS: Mean Corpuscular Volume 91 fL (80-100)
[2019-04-21 01:31] LABS: Alanine Aminotransfer (ALT/SGP 16 U/L (12-78); Albumin, Blood 2.1 g/dL (3.4-5.0); Albumin/Globulin Ratio 0.4 (0.8-1.8); Alk Phos 82 U/L (50-136); Anion Gap 2 mmol/L (6-16); Aspartate Aminotrans (AST/SGOT 21 U/L (12-37); Bilirubin, Total <0.1 mg/dL (0.1-1.0); Blood Urea Nitrogen 12 mg/dL (8-24); CO2, Blood 43 mmol/L (21-32); Calcium, Blood 9.7 mg/dL (8.5-10.1); Chloride, Blood 96 mmol/L (98-108); Creatinine, Blood 0.67 mg/dL (0.40-1.00); Globulin, Blood 5.8 g/dL (2.2-4.0); Glomerular Filtration Rate >60 (60-); Glucose, Blood 123 mg/dL (70-99); Potassium, Blood 4.3 mmol/L (3.5-5.5); Sodium, Blood 141 mmol/L (136-145); Total Protein, Blood 7.9 g/dL (6.4-8.2)
[2019-04-21] MEDS ORDERED: Loratadine10 MG PO (01:33)
[2019-04-21] MEDS ORDERED: BUPROPION HCL200 MG PO (01:33)
[2019-04-21] MEDS ORDERED: Hair, Skin & N1 EACH PO (01:33)
[2019-04-21] MEDS ORDERED: SYNTHROID175 MCG PO (01:34)
[2019-04-21] MEDS ORDERED: METO25ER PO (01:34)
[2019-04-21] MEDS ORDERED: HAIR, SKIN AND1 EAC3 PO (01:34)
[2019-04-21] MEDS ORDERED: OMEPRAZOLE20 MG PO (01:34)
[2019-04-21] MEDS ORDERED: FLUT1DIS5 INH (01:35)
[2019-04-21] MEDS ORDERED: Vitamin D2000 UNIT PO (01:35)
[2019-04-21] MEDS ORDERED: ASCO500 PO (01:35)
[2019-04-21] MEDS ORDERED: CEFD300 PO (01:36)
[2019-04-21] MEDS ORDERED: DOCU100 PO (01:36)
[2019-04-21] MEDS ORDERED: FERSU300 PO (01:37)
[2019-04-21] MEDS ORDERED: K-Dur20 MEQ PO (01:37)
[2019-04-21] MEDS ORDERED: CRANBERRY450 M1 PO (01:37)
[2019-04-21] MEDS ORDERED: OCUVITE EYE +1 EACH PO (01:38)
[2019-04-21] MEDS ORDERED: FURO20 PO (01:38)
[2019-04-21] MEDS ORDERED: ALBU3IS INH ×2 (01:39)
[2019-04-21 03:05] LABS: Source, Urine Catheter
[2019-04-21 03:07] LABS: Bilirubin, Urine Neg (Neg); Blood, Urine 3+ (Neg); Glucose Qualitative, Urine Neg (Neg); Ketones, Urine Neg (Neg); Leukocyte Esterase, Urine 2+ (Neg); Nitrite, Urine Neg (Neg); Protein, Urine 2+ (Neg); Urobilinogen, Urine NORM (Normal)
[2019-04-21 03:08] LABS: Appearance, Urine Clear (Clear); Color, Urine Yellow (P-Yellow)
[2019-04-21 03:13] LABS: Bacteria Mod /hpf; Red Blood Cells, Urine 0-2 /hpf (0-2); Squamous Epithelial Cells Few /hpf (Few)
[2019-04-21 03:14] LABS: Amorphous Light (0-Heavy); Mucus Light (0-Heavy)
[2019-04-21 03:41] LABS: Hematocrit 33.3 % (33.0-51.0); Hemoglobin 9.5 g/dL (11.5-16.0); Mean Corpuscular HGB Conc 28.5 g/dL (31.5-36.5); Mean Corpuscular Volume 91 fL (80-100); Mean Platelet Volume 9.5 fL (9.1-12.4); Platelet Count 247 K/mm3 (150-400); RDW Coefficient Variation 14.8 % (11.7-14.2); RDW Standard Deviation 49.6 fL (35.1-46.3); Red Blood Cell Count 3.66 M/mm3 (3.80-5.20)
[2019-04-21 04:00] LABS: Alanine Aminotransfer (ALT/SGP 14 U/L (12-78); Albumin/Globulin Ratio 0.4 (0.8-1.8); Alk Phos 76 U/L (50-136); Anion Gap 2 mmol/L (6-16); Aspartate Aminotrans (AST/SGOT 13 U/L (12-37); Bilirubin, Total 0.2 mg/dL (0.1-1.0); Blood Urea Nitrogen 12 mg/dL (8-24); CO2, Blood 42 mmol/L (21-32); Calcium, Blood 9.3 mg/dL (8.5-10.1); Chloride, Blood 96 mmol/L (98-108); Creatinine, Blood 0.63 mg/dL (0.40-1.00); Globulin, Blood 5.2 g/dL (2.2-4.0); Glomerular Filtration Rate >60 (60-); Glucose, Blood 138 mg/dL (70-99); Potassium, Blood 4.1 mmol/L (3.5-5.5); Sodium, Blood 140 mmol/L (136-145); Total Protein, Blood 7.2 g/dL (6.4-8.2)
[2019-04-21 04:09] LABS: Free Thyroxine 1.32 ng/dL (0.70-1.60)
[2019-04-21 04:13] LABS: Thyroid Stimulating Hormone 0.423 uIU/mL (0.360-4.800)
[2019-04-21 04:25] LABS: U Amphetamine Screen Not Detected; U Barbituate Screen Not Detected; U Benzodiazapine Screen Not Detected; U Buprenorphine Screen Not Detected; U Cannabinoids Screen Not Detected; U Cocaine Screen Not Detected; U Methadone Screen Not Detected; U Methamphetamine Screen Not Detected; U Opiates Screen Not Detected; U Oxycodone Screen Not Detected; U Phencyclidine Screen Not Detected; U Propoxyphene Screen Not Detected
[2019-04-21 05:16] LABS: PCO2 Arterial 77.4 mmHg (35-45); PO2 Arterial 65.2 mmHg (80-100); pH Blood Arterial 7.38 (7.35-7.45)
--- NOTE | 2019-04-21 05:35 | NUR ---
SHIFT SUMMARY PT ARRIVED TO UNIT FROM ED ON STRETCHER, WAS TRANSFERED TO HOSP BED VIA SLIDER SHEET. PT ARRIVED ON BIPAP W/ SATS >92% TOLERATING MASK WELL. UPON ROLLING PT TO REMOVED EXCESS LINEN, 2 LARGE DECUB ULCERS WERE NOTED TO PT COCCYX AND BUTTOCKS. WOUNDS WERE CLEANED, AND PICTURES TAKEN FOR CHART, MEPILEX PADS WERE APPLIED TO WOUNDS. PT ABLE TO OPEN EYES AND NOD OR SHAKE HEAD WHEN ASKED DIRECT QUESTIONS. PT DOES FALL ASLEEP QUICKLY AGAIN AFTER ANSWERING QUESTIONS, AND IS HARD TO AWAKEN. PT DENIES PAIN AT REST, BUT CALLS OUT IN PAIN WHEN ROLLED OR WHEN ANY EXTREMITY IS MOVED. PALOMINO CATH WAS PLACED D/T PT INCONTINENCE, AND PROTECTING PHILIPP AREA WOUNDS. PT CO2 LEVEL IS IMPROVING PER RT VIA ABG. IVF INFUSING IN PIV TO PT R SHOULDER. CALL LIGHT IN REACH, BED ALARM ON FOR SAFETY.
--- NOTE | 2019-04-21 10:57 | NUR ---
Echocardiogram completed.
[2019-04-21 13:46] LABS: Adenovirus Not Detected (NOT DETECT); Bordetella pertussis Not Detected (NOT DETECT); Chlamydophila pneumoniae Not Detected (NOT DETECT); Coronavirus 229E Not Detected (NOT DETECT); Coronavirus HKU1 Not Detected (NOT DETECT); Coronavirus NL63 Not Detected (NOT DETECT); Coronavirus OC43 Not Detected (NOT DETECT); Human Metapneumovirus Not Detected (NOT DETECT); Human Rhinovirus/Enterovirus Not Detected (NOT DETECT); Influenza A Not Detected (NOT DETECT); Influenza A/2009-H1 Not Detected (NOT DETECT); Influenza A/H1 Not Detected (NOT DETECT); Influenza A/H3 Not Detected (NOT DETECT); Influenza B Not Detected (NOT DETECT); Mycoplasma pneumoniae Not Detected (NOT DETECT); Parainfluenza Virus 1 Not Detected (NOT DETECT); Parainfluenza Virus 2 Not Detected (NOT DETECT); Parainfluenza Virus 3 Not Detected (NOT DETECT); Parainfluenza Virus 4 Not Detected (NOT DETECT); Respiratory Syncytial Virus Not Detected (NOT DETECT)
[2019-04-22 03:54] LABS: BASOPHILS ABSOLUTE AUTO 0.02 K/mm3 (0.00-0.23); BASOPHILS PERCENT AUTO 0 % (0-2); EOSINOPHILS ABSOLUTE AUTO 0.06 K/mm3 (0.00-0.68); EOSINOPHILS PERCENT AUTO 1 % (0-6); Hematocrit 31.7 % (33.0-51.0); Hemoglobin 9.1 g/dL (11.5-16.0); IMMATURE GRAN ABSOLUTE AUTO 0.06 K/mm3 (0.00-0.10); IMMATURE GRAN PERCENT AUTO 1 % (0-1); LYMPHOCYTES ABSOLUTE AUTO 0.96 K/mm3 (0.84-5.20); LYMPHOCYTES PERCENT AUTO 12 % (21-46); MONOCYTES ABSOLUTE AUTO 0.58 K/mm3 (0.16-1.47); MONOCYTES PERCENT AUTO 8 % (4-13); Mean Corpuscular HGB 25.5 pg (26.0-34.0); Mean Corpuscular HGB Conc 28.7 g/dL (31.5-36.5); Mean Corpuscular Volume 89 fL (80-100); Mean Platelet Volume 9.7 fL (9.1-12.4); NEUTROPHILS ABSOLUTE AUTO 6.05 K/mm3 (1.96-9.15); NEUTROPHILS PERCENT AUTO 78 % (41-73); Platelet Count 298 K/mm3 (150-400); RDW Coefficient Variation 14.9 % (11.7-14.2); RDW Standard Deviation 47.8 fL (35.1-46.3); Red Blood Cell Count 3.57 M/mm3 (3.80-5.20); White Blood Cell Count 7.73 K/mm3 (4.00-11.30)
[2019-04-22 04:13] LABS: Anion Gap 3 mmol/L (6-16); Blood Urea Nitrogen 19 mg/dL (8-24); CO2, Blood 39 mmol/L (21-32); Calcium, Blood 9.3 mg/dL (8.5-10.1); Chloride, Blood 101 mmol/L (98-108); Glomerular Filtration Rate >60 (60-); Glucose, Blood 117 mg/dL (70-99); Sodium, Blood 143 mmol/L (136-145)
--- NOTE | 2019-04-22 06:14 | NUR ---
SHIFT SUMMARY PT HAS REMAINED AOX4 THROUGHOUT THE SHIFT. VSS. PLEASANT AND COOPERATIVE WITH CARE. PT REMAINS ON BEDREST THROUGHOUT THE NIGHT, TURNED Q2 BY STAFF. PT IS RELUCTANT TO TURN FULLY TO R SIDE, BUT ATTEMPTED TO SHIFT SIDE TO SIDE FOR SKIN INTEGRITY. WOUND TO COCCYX AND R BUTTOCKS REMAINS UNCHANGED FROM ARRIVAL. WOUND CLEANED AND DRESSING CHANGE DONE LAST NIGHT. DRESSING PLACED WAS HYDROGEL ON ABD PAD WITH MEPILEX AND TEGADERM COVERING, PT TOLERATED DRESSING CHANGE WELL. PT PROVIDED WITH PARTIAL BED BATH IN WOUND CLEANING PROCESS. O2 SATS HAVE REMAINED >90% ON 3L VIA NASAL CANNULA OR ON V60 BIPAP WITH SETTINGS OF 14/7 35% FIO2. PT HAS KEPT BIPAP IN PLACE FOR SEVERAL HOURS THROUGHOUT THE NIGHT AND APPEARS TO BE RESTING COMFORTABLY. FAMILY MEMBER HAS REMAINED AT BEDSIDE THROUGHOUT THE NIGHT. NO OTHER CHANGES NOTED FROM INITIAL ASSESSMENT. WILL CONTINUE TO MONITOR AND REPORT TO ONCOMING SHIFT RN. BED IN LOW POSITION, CALL LIGHT IN REACH. BED ALARM SET FOR SAFETY.
--- NOTE | 2019-04-22 18:29 | NUR ---
SHIFT SUMMARY THIS MORNING PT WAS ON OXYGEN AT 3LNC, BUT WAS DECREASED TO 2LNC PER DR MARIE THIS AFTERNOON. PT TOLERATED WELL. RT PERFORMED CPT TODAY AND PT TOLERATED WELL. PT NOTED THAT SHE IS COUGHING MORE, BUT IT'S NON-PRODUCTIVE CURRENTLY. UTLIZING THE LIFT, PT WAS ABLE TO GET UP TO THE CHAIR THIS AFTERNOON FOR A COUPLE OF HOURS. PER TELEMETRY, PT WAS IN A-FIB. HER HR REMAINED AROUND 110'S TODAY. DISCUSSED WITH DR UGARTE AND AN INCREASE IN HER METOPROLOL WAS MADE. OTHER VITALS HAVE REMAINED STABLE.
--- NOTE | 2019-04-22 19:50 | NUR ---
PT RESTING IN BED. UNCOMFORTABLE IN BED. REPOSITIONED UNTIL SHE IS COMFORTABLE. PT HAS A DIFFICULT TIME FINDING WORDS AT TIMES BUT IS ABLE TO MAKE NEEDS KNOWN. SEE ASSESSMENT. DAUGHTER AT BEDSIDE.
--- NOTE | 2019-04-22 23:24 | NUR ---
CHANGED DRESSINGS TO BUTTOCKS AND COCCYX. CLEANSED WITH WOUND SUPERVISOR CHEMICAL FIRST. PT TOLERATED WELL.
[2019-04-23 04:06] LABS: Base Excess Venous 20.4 mmol/L; PCO2 Venous 38.1 mmHg (38-42); PO2 Venous 99.2 mmHg (38-42)
[2019-04-23 04:07] LABS: pH Blood Venous 7.64 (7.34-7.37)
--- NOTE | 2019-04-23 06:20 | NUR ---
SUMMARY PT RESTING IN BED. ONLY WORE BIPAP FOR ABOUT A HOUR LAST NIGHT. CRITICAL PH ON [facility] WAS CALLED TO DR. FELIX WHO ORDERED TO HOLD ON BIPAP. PT HAS BEEN UNCOMFORTABLE IN BED AND NEEDS FREQUENT ADJUSTMENTS. DRESSING TO BUTTOCKS AND COCCYX CHANGED PER ORDERS. NO SIGN OF DISTRESS. CALL LIGHT IN REACH AND PT USES IT APPROPRIATELY.
--- NOTE | 2019-04-23 10:31 | NUR ---
This morning, Maryana is alert, oriented, and appropriate in conversation. Able to correctly state date/time, place, and recognize family and events recently, with some gaps in her memory of specific details such as why she came into the hospital, and when she had her last bowel movement. Assisted OOB to chair using the lift for transfer. She states that she usually does not get OOB to a chair for meals at [facility], despite her aspiration risk and a recent admission for this problem, after which it was strongly advised that she only eat when up in a chair due to aspiration pneumonia recent diagnosis. The pt states that at [facility] they "are just so busy" and that is her explaination for why she doesn't get up for each meal. However, she was not very interested in getting up to the chair this morning, and as soon as possible wanted to get back into bed. She prefers only to lay on her left side while in bed. It was explained to her the neccessity of being up in the chair for the meals to prevent pneumonia from aspiration, but she does not appear to be motivated to comply.
--- NOTE | 2019-04-23 15:50 | NUR ---
PT repositioned supine as much as possible for skin care. RT care called for breathing tx. spo2 92-93 % and vital signs stable. Pt refuses water because she only wants it if she can use a straw and drink while in a supine position, which is contradictory to the speech therapy orders.
--- NOTE | 2019-04-23 16:25 | NUR ---
the pt was up to the chair for her meals, but otherwise preferred to be in bed, lying on her left side. She was repositioned supine as much as possible in order to promote respiratory functioning as well as prevention of skin breakdown.
--- NOTE | 2019-04-23 18:25 | NUR ---
Maryana declined her dinner; stated that she just isn't hungry. Repositioned to the left side.
--- NOTE | 2019-04-24 06:22 | NUR ---
SHIFT SUMMARY PT HAS REMAINED AOX4 THROUGHOUT SHIFT. VSS. PLEASANT AND COOPERATIVE WITH CARE. PT HAS RESTED THROUGHOUT MUCH OF THE NIGHT, BUT WAKES EASILY FOR CARE AND REPOSITIONING. O2 SATS HAVE REMAINED >90% ON 3L VIA NASAL CANNULA. PT HAS REFUSED BIPAP THROUGHOUT THE NIGHT, BUT TOLERATES NASAL CANNULA WELL. PT TURNED Q2. MEDICATED ONCE FOR PAIN THAT DECREASED WITH ORDERED MEDICATIONS. PT CONTINUES TO TOLERATE THICKENED LIQUIDS AND MECHANICAL SOFT DIET WELL. ORAL CARE PERFORMED WITH SUCTION SWABS. PT TOLERATED WELL. NO OTHER CHANGES NOTED FROM INITIAL ASSESSMENT. WILL CONTINUE TO MONITOR AND REPORT TO ONCOMING SHIFT RN. BED IN LOW POSITION, CALL LIGHT IN REACH.
--- NOTE | 2019-04-24 07:30 | NUR ---
ASSUMED CARE: PT RESTING QUIETLY AT THIS TIME. NO ACUTE NEEDS OR CONCERNS NOTED.
--- NOTE | 2019-04-24 14:18 | NUR ---
PT TRANSFERRED [facility]IA [place] [facility] BACK TO [facility]. ATTEMPTED TO CALL REPORT. STAFF TOOK MESSAGE AND SAID THEY WOULD HAVE NURSE CALL BACK-0
--- NOTE | 2019-04-24 15:31 | NUR ---
REPORT CALLED TO SARAI FLORES. NURSE FAMILIAR WITH PT. DENIES FURTHER QUESTIONS OR CONCERNS.
== END 2019-04-24 14:21 | disposition home or self-care (01) | DRG 189 ==
LOC: ER 21:48 → PCU 21:49
PROVIDERS: Emergency Medicine; Internal Medicine; Internal Medicine Pulmonary Disease; ADMIT Internal Medicine
DX: J96.21 Acute and chronic respiratory failure with hypoxia (principal); J98.19 Other pulmonary collapse; G93.40 Encephalopathy, unspecified; J96.22 Acute and chronic respiratory failure with hypercapnia; Z99.81 Dependence on supplemental oxygen; E11.622 Type 2 diabetes mellitus with other skin ulcer; E86.0 Dehydration; Z86.73 Personal history of transient ischemic attack (TIA), and cerebral infarction without residual deficits; L89.312 Pressure ulcer of right buttock, stage 2; L89.152 Pressure ulcer of sacral region, stage 2; E66.01 Morbid (severe) obesity due to excess calories; E03.9 Hypothyroidism, unspecified; K21.9 Gastro-esophageal reflux disease without esophagitis; G47.30 Sleep apnea, unspecified; G89.29 Other chronic pain; J44.9 Chronic obstructive pulmonary disease, unspecified
CPT/HCPCS: 0099U; 36415; 36600; 51702; 71045; 80047; 80048; 80053; 81001; 82140; 82803; 82947; 84439; 84443; 85014; 85025; 85027; 87081; 87086; 92526; 92610; 93306; 94640; 94660; 94667; 94668; 94762; 96374; 99285-25; A9270; G0378; J0696; J1650; J2310; J2930; J7030; P9046

== ENCOUNTER → 2019-04-28 | Outpatient (CLI) | payer OTHER ==
[~2019-04-28] MED LIST changes: +BUPROPION HCL200 MG PO; +Bupropion HCl200 MG PO; +CLARITIN10 MG PO; +CRANBERRY450 M1 PO; +Ferrousul325 MG PO; +HAIR, SKIN AND1 EAC3 PO; +K-Dur20 MEQ PO; +K-Phos Origina500 MG PO; +Loratadine10 MG PO; +MERREM1 GM IV; +MULTIPLE VITAM1 EACH PO; +Metoprolol Succ25 MG PO; +OMEPRAZOLE20 MG PO; +POTCHL20ER PO; +Prednisone10 MG PO; +SYNTHROID175 MCG PO; +Vsl#3 Capsule1 EACH PO; +ZOSYN IV
== END | disposition home or self-care (01) ==
LOC: LAB UVN 13:36 → EDSTATUS 14:51
DX: A41.89 Other specified sepsis (principal)
CPT/HCPCS: 87070; 87075; 87076; 87077; 87185; 87186; 87205

== ENCOUNTER 2019-05-02 10:38 | Inpatient (IN) | payer OTHER ==
[~2019-05-02] VITALS: Ht 157.5 cm; Wt 115.9 kg
[~2019-05-02 10:38] MED LIST changes: -Bupropion HCl200 MG PO; -CLARITIN10 MG PO; -Ferrousul325 MG PO; -K-Phos Origina500 MG PO; -MERREM1 GM IV; -MULTIPLE VITAM1 EACH PO; -Metoprolol Succ25 MG PO; -POTCHL20ER PO; -Prednisone10 MG PO; -Vsl#3 Capsule1 EACH PO; -ZOSYN IV
[2019-05-02 10:55] LABS: PCO2 Arterial > 105 mmHg (35-45); pH Blood Arterial 7.12 (7.35-7.45)
[2019-05-02 11:00] LABS: BASOPHILS ABSOLUTE AUTO 0.04 K/mm3 (0.00-0.23); BASOPHILS PERCENT AUTO 0 % (0-2); EOSINOPHILS PERCENT AUTO 0 % (0-6); Hematocrit 39.6 % (33.0-51.0); Hemoglobin 10.8 g/dL (11.5-16.0); IMMATURE GRAN PERCENT AUTO 2 % (0-1); LYMPHOCYTES ABSOLUTE AUTO 1.08 K/mm3 (0.84-5.20); LYMPHOCYTES PERCENT AUTO 8 % (21-46); MONOCYTES ABSOLUTE AUTO 0.79 K/mm3 (0.16-1.47); MONOCYTES PERCENT AUTO 6 % (4-13); Mean Corpuscular HGB 26.2 pg (26.0-34.0); Mean Corpuscular HGB Conc 27.3 g/dL (31.5-36.5); Mean Platelet Volume 9.4 fL (9.1-12.4); NEUTROPHILS ABSOLUTE AUTO 10.88 K/mm3 (1.96-9.15); NEUTROPHILS PERCENT AUTO 84 % (41-73); Platelet Count 393 K/mm3 (150-400); RDW Coefficient Variation 15.6 % (11.7-14.2); RDW Standard Deviation 54.5 fL (35.1-46.3); Red Blood Cell Count 4.13 M/mm3 (3.80-5.20); White Blood Cell Count 12.99 K/mm3 (4.00-11.30)
[2019-05-02 11:06] LABS: Mean Corpuscular Volume 96 fL (80-100)
[2019-05-02 11:21] LABS: Anion Gap 1 mmol/L (6-16); Blood Urea Nitrogen 16 mg/dL (8-24); CO2, Blood 44 mmol/L (21-32); Calcium, Blood 9.7 mg/dL (8.5-10.1); Chloride, Blood 94 mmol/L (98-108); Creatinine, Blood 0.84 mg/dL (0.40-1.00); Glomerular Filtration Rate >60 (60-); Glucose, Blood 158 mg/dL (70-99); Potassium, Blood 5.3 mmol/L (3.5-5.5); Sodium, Blood 139 mmol/L (136-145)
[2019-05-02 11:28] LABS: Source, Urine Catheter
[2019-05-02 11:40] LABS: Appearance, Urine Cloudy (Clear); Bilirubin, Urine Neg (Neg); Blood, Urine 5+ (Neg); Color, Urine Yellow (P-Yellow); Glucose Qualitative, Urine Neg (Neg); Ketones, Urine 1+ (Neg); Leukocyte Esterase, Urine 1+ (Neg); Nitrite, Urine Neg (Neg); Protein, Urine 3+ (Neg); Urobilinogen, Urine NORM (Normal)
[2019-05-02 11:58] LABS: Amorphous Mod (0-Heavy); Bacteria Few /hpf; Red Blood Cells, Urine 25-50 /hpf (0-2); Squamous Epithelial Cells Mod /hpf (Few)
[2019-05-02] MEDS ORDERED: Bupropion HCl200 MG PO (12:26)
[2019-05-02] MEDS ORDERED: SYNTHROID175 MCG PO (12:27)
[2019-05-02] MEDS ORDERED: MULTIPLE VITAM1 EACH PO (12:27)
[2019-05-02] MEDS ORDERED: CLARITIN10 MG PO (12:27)
[2019-05-02] MEDS ORDERED: OMEPRAZOLE20 MG PO (12:28)
[2019-05-02] MEDS ORDERED: Metoprolol Succ25 MG PO (12:28)
[2019-05-02] MEDS ORDERED: THERA-D2000 UNIT PO (12:30)
[2019-05-02] MEDS ORDERED: ASCO500 PO (12:30)
[2019-05-02] MEDS ORDERED: DOCU100 PO (12:31)
[2019-05-02] MEDS ORDERED: FLUT1DIS5 INH (12:31)
[2019-05-02] MEDS ORDERED: CRANBERRY450 MG PO (12:32)
[2019-05-02] MEDS ORDERED: Ferrousul325 MG PO (12:32)
[2019-05-02] MEDS ORDERED: FURO20 PO (12:33)
[2019-05-02] MEDS ORDERED: OCUVITE EYE +1 EACH PO (12:34)
[2019-05-02] MEDS ORDERED: ALBU3IS INH (12:35)
[2019-05-02] MEDS ORDERED: POTCHL20ER PO (12:35)
[2019-05-02] MEDS ORDERED: ACET325 PO (12:36)
--- NOTE | 2019-05-02 13:55 | NUR ---
PATIENT ARRIVED FROM ED TO ROOM ICU 14 VIA STRETCHER AFTER REPORT WAS RECEIVED FROM JOHANNE RN, ER, PATIENT ON BIPAP, SETTINGS ARE 18/6 FiO2 45 %, PATIENT WAS MOVED FROM STRETCHER TO BED VIA SLIDER, KEPT CALLING OUT "OUCH, OUCH", PATIENT IS VERY PAINFUL, SITUATION IN BED, HAS ONE LARGE PRESSURE ULCER ON COCCYX WITH PACKING AND COVERED WITH GAUZE, AND ONE SMALLER PRESSURE ULCER WITH ESCAR ON RIGHT HIP, COVERED WITH 4x4, PICTURES TAKEN AND PLACED IN CHART, PATIENT IS SLIGHTLY MORE RESPONSIVE, OPENS EYES TO VOICE AND ABLE TO FOLLOW COMMANDS, ABLE TO SQUEEZE HAND, LUNG SOUNDS ARE TIGHT AND VERY DIMINISHED, PATIENT COUGHING UP SOME SECRETIONS, THICK AND CARLOS COLORED, SUCTIONED, PATIENT RECEIVED 1L BOLUS OF NS IN ED, NOW ON NS AT 75 CC/HR INFUSING, ALSO HAD ROCEPHIN AND FLAGYL INFUSING, PATIENT IS IN A-FIB WITH HR FROM 110'S TO 130'S, SBP'S ARE VARIYING D/T PATIENT'S SHAKINESS, SHAKES INCREASE WHEN BLOOD PRESSURE CUFF INFLATES, UNABLE TO CONTROL SHAKES, SBP'S ARE ANYWHERE FROM 80'S TO 130'S AND EVEN 180'S, DR. JUDD AWARE, PATIENT HAS TEMP PALOMINO AND SLIGHTLY ELEVATED TEMP AT 100.0, PATIENT'S THREE DAUGHTERS AT BEDSIDE, DAUGHTER DEBBY IS MAIN DECISION MAKER AND POA, UNKNOWN IF THERE IS AN ADVANCED DIRECTIVE, POLST IN CHART, PATIENT WANTS NO DNI BUT WANTS TO HAVE CPR, DEFIBRILLATION AND MEDICAL TREATMENT, SCD'S IN PLACE, PATIENT IS EXTREMELY PAINFUL ALL OVER, ORIENTED TO ROOM AND NEW ENVIRONMENT, CALL LIGHT IN REACH, WILL CONTINUE TO MONITOR.
--- NOTE | 2019-05-02 17:10 | NUR ---
CALLED DR. JUDD AND DISCUSSED MINIMAL URINE OUTPUT AND SBP IN 90'S WITH HIM, NEW ORDER RECEIVED.
--- NOTE | 2019-05-02 17:48 | NUR ---
SHIFT SUMMARY NOTE: NO ACUTE EVENTS SINCE PATIENT ADMISSION, VSS, PATIENT'S HR IN 120'S, CONTINUES IN A-FIB, SBP'S NOW IN 110'S AFTER INCREASE OF IV FLUIDS, PATIENT STOPPED SHAKING, MINIMAL URINE OUTPUT AT 100 CC/HR, PATIENT CONTINUES ON BIPAP 18/6/FiO2 AT 55 % WITH O2 SATS IN MID 90'S, DAUGHTERS WERE UPDATED, FOR DETAILS SEE ADMISSION AND SHIFT ASSESSMENT DOCUMENTATION AND NURSES NOTES, CALL LIGHT IN REACH, WILL CONTINUE TO MONITOR AND GIVE REPORT TO ONCOMING PROCESS EQUIPMENT OPERATOR.
--- NOTE | 2019-05-02 19:20 | NUR ---
ASSUMED CARE BEDSIDE REPORT RECIEVED. PT IS LAYING IN BED WITH BIPAP IN PLACE. BIPAP AT 18/6, FIO2 55%. PT AROUSES TO VERBAL STIMULI AND NOXIOUS STIMULI. PT UNABLE TO FOLLOW COMMANDS. PT MOANS, BUT SPEECH IS NOT COMPREHENSABLE. VITAL SIGNS STABLE, PT IN AFIB 100-120'S. PALOMINO TEMP PROBE IN PLACE WITH MINIMAL URINE OUTPUT. IV'S TO RIGHT SHOULDER C/D/I WITH NS INFUSING AT 150 ML/HR. NO FAMILY AT BEDSIDE. WOUNDS TO COCCYX AND HIP NOTED, SEE PHOTOS IN CHART. WILL CONTINUE TO MONITOR.
[2019-05-02 20:51] LABS: U Amphetamine Screen Not Detected; U Barbituate Screen Not Detected; U Benzodiazapine Screen Not Detected; U Cannabinoids Screen Not Detected; U Cocaine Screen Not Detected; U Methadone Screen Not Detected; U Methamphetamine Screen Not Detected; U Opiates Screen Not Detected; U Phencyclidine Screen Not Detected
[2019-05-02 20:52] LABS: U Buprenorphine Screen Not Detected; U Oxycodone Screen Not Detected; U Propoxyphene Screen Not Detected
[2019-05-03 03:22] LABS: BASOPHILS ABSOLUTE AUTO 0.01 K/mm3 (0.00-0.23); BASOPHILS PERCENT AUTO 0 % (0-2); EOSINOPHILS PERCENT AUTO 0 % (0-6); Hematocrit 31.1 % (33.0-51.0); Hemoglobin 8.8 g/dL (11.5-16.0); IMMATURE GRAN ABSOLUTE AUTO 0.04 K/mm3 (0.00-0.10); IMMATURE GRAN PERCENT AUTO 1 % (0-1); LYMPHOCYTES ABSOLUTE AUTO 0.55 K/mm3 (0.84-5.20); LYMPHOCYTES PERCENT AUTO 7 % (21-46); MONOCYTES ABSOLUTE AUTO 0.14 K/mm3 (0.16-1.47); MONOCYTES PERCENT AUTO 2 % (4-13); Mean Corpuscular HGB 25.8 pg (26.0-34.0); Mean Corpuscular HGB Conc 28.3 g/dL (31.5-36.5); Mean Platelet Volume 9.8 fL (9.1-12.4); NEUTROPHILS ABSOLUTE AUTO 6.67 K/mm3 (1.96-9.15); NEUTROPHILS PERCENT AUTO 90 % (41-73); Platelet Count 286 K/mm3 (150-400); RDW Coefficient Variation 15.5 % (11.7-14.2); Red Blood Cell Count 3.41 M/mm3 (3.80-5.20); White Blood Cell Count 7.41 K/mm3 (4.00-11.30)
[2019-05-03 03:23] LABS: Mean Corpuscular Volume 91 fL (80-100)
[2019-05-03 03:42] LABS: Alanine Aminotransfer (ALT/SGP 16 U/L (12-78); Albumin, Blood 1.9 g/dL (3.4-5.0); Albumin/Globulin Ratio 0.4 (0.8-1.8); Alk Phos 72 U/L (50-136); Anion Gap 7 mmol/L (6-16); Aspartate Aminotrans (AST/SGOT 10 U/L (12-37); Bilirubin, Total 0.2 mg/dL (0.1-1.0); Blood Urea Nitrogen 24 mg/dL (8-24); Bun/Creatinine Ratio 28.9 (12.0-20.0); CO2, Blood 35 mmol/L (21-32); Calcium, Blood 8.8 mg/dL (8.5-10.1); Chloride, Blood 101 mmol/L (98-108); Creatinine, Blood 0.83 mg/dL (0.40-1.00); Globulin, Blood 5.2 g/dL (2.2-4.0); Glomerular Filtration Rate >60 (60-); Glucose, Blood 148 mg/dL (70-99); Potassium, Blood 4.5 mmol/L (3.5-5.5); Sodium, Blood 143 mmol/L (136-145); Total Protein, Blood 7.1 g/dL (6.4-8.2)
[2019-05-03 05:45] LABS: PO2 Arterial 74.4 mmHg (80-100)
--- NOTE | 2019-05-03 06:11 | NUR ---
SHIFT SUMMARY NO ACUTE CHANGES THIS SHIFT. PT HAS CONTINUED TO REST QUIETLY THROUGHOUT THE SHIFT. PT IS MORE AROUSEABLE THIS MORNING. PT OPENS EYES TO VOICE. PT HAS REMAINED ON BIPAP 18/6, FIO2 60%. ABG MUCH IMPROVED THIS AM. VITAL SIGNS HAVE REMAINED STABLE. PT REMAINS IN AFIB. NS INFUSING AT 75 ML/HR. PALOMINO TEMP PROBE REMAINS IN PLACE WITH MINIMAL URINE OUTPUT NOTED. WILL CONTINUE TO MONITOR AND REPORT OFF TO ONCOMING RN.
--- NOTE | 2019-05-03 07:15 | NUR ---
START OF SHIFT NOTE: RECEIVED REPORT FROM FREDERICK SIFUENTES, RN, ASSUMED CARE, PATIENT IS AWAKE, ABLE TO FOLLOW COMMANDS, CONFUSED TO WHY SHE IS HERE, ABLE TO FOLLOW SIMPLE COMMANDS, ASKING FOR HER DAUGHTERS, REPOSITIONED FOR COMFORT, CONTINUES TO BE ON BIPAP, SETTINGS: 18/6/FiO2 60 %, PATIENT IS NPO, HAS NS AT 75 CC/HR INFUSING WELL FLAGYL, LUNG SOUNDS ARE DIMINISHED WITH EXPIRATORY WHEEZES, PATIENT IN A-FIB WITH HR IN 80'S, SBP IN 130'S, BOWEL TONES HYPOACTIVE, PALOMINO CATHETER IN PLACE DRAINING SMALL AMOUNT OF DARK YELLOW URINE, ORAL CARE DONE, RT IN TO SEE PATIENT, CALL LIGHT IN REACH, WILL CONTINUE TO MONITOR.
--- NOTE | 2019-05-03 07:55 | NUR ---
DR. JUDD IN, NEW ORDERS RECEIVED.
--- NOTE | 2019-05-03 08:11 | NUR ---
[facility], WHERE PATIENT RESIDES, CALLED TO INQUIRE ON PATIENT CONDITION, UPDATE PROVIDED.
--- NOTE | 2019-05-03 09:53 | NUR ---
DAUGHTER DEBBY CALLED AND WAS UPDATED ON PATIENT CONDITION.
--- NOTE | 2019-05-03 12:00 | NUR ---
PATIENT CONTINUES TO REST COMFORTABLY, BIPAP SETTINGS REMAIN UNCHANGED, WAS REPOSITIONED AND BOOSTED UP IN BED, VSS, ABLE TO SWALLOW ORAL MEDICATION WITH SOME APPLESAUCE, PATIENT IS CONFUSED AND STATED SHE IS AT [place] WHEN ASKED WHERE SHE WAS, UNABLE TO REMEMBER WHY SHE CAME TO [facility], ORAL CARE DONE AND FREQUENTLY REPOSITIONED, CALL LIGHT IN REACH, WILL CONTINUE TO MONITOR.
--- NOTE | 2019-05-03 17:51 | NUR ---
SHIFT SUMMARY NOTE: NO ACUTE EVENTS DURING THIS SHIFT, PATIENT CONTINUES ON BIPAP, SETTINGS 18/6/FiO2 60 %, REMAINS NPO, URINE OUTPUT DARK OMAIRA 200 CC'S, FREQUENTLY REPOSITIONED BUT MOVES SELF INTO A LEFT SIDE LYING POSITION, PATIENT IS NOW PCU STATUS, CONTINUES TO RECEIVE ZOSYN AND ROCEPHIN, TOOK HER TOPROL WITH SOME APPLESAUCE, NO PROBLEM SWALLOWING, PATIENT HAD ONE MEDIUM BM BLACK HARD FORMED, DRESSINGS ON PRESSURE ULCERS ARE INTACT, FOR DETAILS SEE SHIFT ASSESSMENT DOCUMENTATION AND NURSES NOTES, CALL LIGHT IN REACH, WILL CONTINUE TO MONITOR AND GIVE REPORT TO ONCOMING DIVISION TRAFFIC SUPERINTENDENT.
--- NOTE | 2019-05-03 23:30 | NUR ---
ASSUMED CARE OF PT, REPORT RCV'D FROM CARMEN TEMPLE. PT WAKES TO VERBAL STIMULI, DOES NOT VERBALLY RESPOND TO QUESTIONS, MOANS WITH REPOSITIONING/CARE, PT ABLE TO OCCASIONALLY FOLLOW COMMANDS "LIFTS HEAD FOR PILLOW". PT REMAINS ON BIPAP 18/6 55% TO MAINTAIN SATS GREATER THAN 90%. NS INFUSING @ 75 ML/HR. PT HAD LARGE INCONTINENT BOWEL MOVEMENT. STOOL COVERED MEPILEX DRESSINGS ON COCCYX. DRESSING'S REMOVED AND WOUND REPACKED AND MEPILEX REAPPLIED. MEPILEX REMAINS INTACT ON PT'S RIGHT BACK HIP. WOUNDS ARE FOUL SMELLING. PT ALSO NOTED TO HAVE MODERATE AMOUNT OF BROWNISH/YELLOW VAGINAL DISCHARGE. PT CLEANED AND CATH CARE DONE. PLEASE SEE FULL SHIFT ASSESSMENT.
--- NOTE | 2019-05-04 03:02 | NUR ---
02:40 ASKED BY CARMEN LUCAS TO ASSIST WITH COCCYX WOUND DRESSING CHANGE. UPON REMOVING OLD DRESSING, NOTED LARGE AMOUNT OF SOME OLD DRESSING, POSSIBLY MAXORB ALGINATE, STUCK TO WOUND BED. THIS UNIDENIFIED CHUNK WAS NOT REMOVABLE BY TWEEZERS, NORMAL SALINE FLUSH, NOR WOULD WOOL HAT FLANGER. PICTURES WERE TAKEN. THE BED SITS AT A DEPTH OF ABOUT 3 CM, MAIN OPENING IS APPROXIMATELY 6 CM X 6CM. AT 12 O'CLOCK THERE IS A WIDE TUNNEL MEASURING 6 CM DEEP, AT 4 O'CLOCK (GOING TO RIGHT BUTTOCK) THERE IS A WIDE TUNNEL MEASURING 5 CM DEEP, AT 5 O'CLOCK IS A MORE NARROW TUNNEL MEASURING 4 CM DEEP. THE 12 AND 4 O'CLOCK TUNNELS ARE APPROXIMATELY 2.5 CM WIDE, THE TUNNEL AT 5 O'CLOCK IS LESS THAN 1 CM WIDE. AFTER THE OLD DRESSING WAS REMOVED AND BED THOROUGHLY CLEANSED, I PACKED THE ENTIRE AREA WITH KERLEX SOAKED IN HYDROGEL, COVERED WITH MOIST KERLEX, SEALED WITH A NON-ADHERENT PAD AND MEPILEX. RECOMENDED TO LANCE THAT SURGERY BE CONSULTED FOR REMOVAL OF UNKNOWN MATERIAL AT WOUND BASE.
[2019-05-04 03:42] LABS: Anion Gap 4 mmol/L (6-16); Blood Urea Nitrogen 35 mg/dL (8-24); Bun/Creatinine Ratio 41.9 (12.0-20.0); CO2, Blood 37 mmol/L (21-32); Calcium, Blood 8.6 mg/dL (8.5-10.1); Chloride, Blood 106 mmol/L (98-108); Creatinine, Blood 0.84 mg/dL (0.40-1.00); Glomerular Filtration Rate >60 (60-); Glucose, Blood 151 mg/dL (70-99); Potassium, Blood 3.9 mmol/L (3.5-5.5); Sodium, Blood 147 mmol/L (136-145)
--- NOTE | 2019-05-04 05:05 | NUR ---
PT AWAKE/ALERT REQUESTING BREAK FROM BIPAP. PT PLACED ON 4L NC WITH SATS OF 94%. PT GIVEN ORAL SWAB AND WAS ABLE TO SWAB HER MOUTH INDEPENDENTLY. PT ABLE TO CLEARLY VERBALIZE NEEDS AT THIS TIME.
--- NOTE | 2019-05-04 06:16 | NUR ---
SHIFT SUMMARY PT MUCH MORE ALERT AND COOPERATIVE WITH CARE THIS MORNING. PT GIVEN BREAK FROM BIPAP THIS MORNING PER HER REQUEST AT 0500, AT 0530 BIPAP NEEDED TO BE REAPPLIED PT'S SATS DROPPED BELOW 90%. BIPAP SETTINGS 18/6 50%. LUNG SOUNDS TIGHT/DIM T/O. 200 ML DARK OMAIRA FOUL SMELLING URINARY OUTPUT. PRESSURE ULCER ON COCCYX REDRESSED (SEE PREVIOUS NURSES NOTE), WOUNDS HAVE VERY STRONG FOUL SMELL. WILL REPORT TO DAYSHIFT NURSE, POSSIBLY CONSIDER SURGICAL CONSULT.
--- NOTE | 2019-05-04 08:00 | NUR ---
ASSUMED CARE PT. ALERT THIS AM, ANSWERING QUESTIONS. BREAK FROM BIPAP PER PT. REQUEST WITH 4LNC, PT TOLERATING WELL. PT ASSISTED TO REPOSITION, CURRENTLY UP HIGH ON LEFT SIDE DUE TO MULTIPLE WOUNDS. PT. REQUESTING TO SLEEP FOR A LITTLE LONGER THIS AM, DENIES PAIN. VSS. CALL LIGHT IN REACH.
--- NOTE | 2019-05-04 08:45 | NUR ---
PROVIDER AT BEDSIDE WOULD LIKE TO SPEAK WITH FAMILY IF THEY COME IN TO VISIT. PLANS FOR ADVANCING DIET TODAY TOLERATED, AND TRANSER TO MEDICAL FLOOR.
--- NOTE | 2019-05-04 11:00 | NUR ---
PT TOLERATING PO FLUIDS, BEDSIDE SWALLOW STUDY DONE, PT PASSED. TOLERATING WATER WELL WILL ADVANCE DIET TOLERATED.
--- NOTE | 2019-05-04 15:20 | NUR ---
Initial Visit: Pt has increasing visits to the hospital due to respiratory issues. She is non-compliant with her bipap/cpap machine at the facility where she lives. Asked to be present for a conversation with the family to discuss goals of care and advance care planning. There are two daughters present in the hospital, one of them was out of the room during my conversation with the pt. They have just spoken with the hospitalist. From that discussion, the pt is now stating that she will no longer refuse to wear the mask at night. Daughter at bedside is anxious. She is telling the pt, "I'm not ready for you to go. I will NEVER be ready for you to go, so you'd better be wearing that thing!" Pt states that she does not have pain at this time. She is working to breathe, however. She reports that since she has turned 83 this summer, "everything has gone downhill, and it won't get better." She reports that she doesn't have an appetite and food is tasting differently to her now. Instructed that this may be an indication of end of life stage. She is not commenting on that, but she reiterates, "I'm going to wear the mask." Her daughter states, "well we are definately filling out that advance directive, because I can't make decisions like that." Daughter reports that she does have an advance directive workbook, but they have not filled that out. She states that there is a POLST form that they have at [facility]. Discussed hospice care with her. Instructed on service, philosophy, medications to support comfort. Instructed on roxanol and ativan to keep her calm and treat her air hunger, which is very uncomfortable for her. The pt says again, "Well, I'm going to wear the mask, I promise." No other concerns for them at this time. They do not need another advance directive workbook, she knows where it is and will assist mom in filling it out. Pt would be appropriate for hospice at this time. She is a DNI, but would accept chest compressions if needed.
--- NOTE | 2019-05-04 15:54 | NUR ---
PT FAMILY IN TO TALK WITH DR. JUDD. PT STATES SHE WILL TRY AND WEAR HER BIPAP MORE OFTEN. PLANS FOR RETURN TO [facility] TOMORROW. PT. NAYELY.
--- NOTE | 2019-05-04 16:45 | NUR ---
REPORT TO TERESITA RN, PT VSS REMAIN STABLE, NADN. ALL BELONGINGS TAKEN TO FLOOR WITH PT.
--- NOTE | 2019-05-04 17:31 | NUR ---
ICU TRANSFER/SHIFT SUMMARY ICU TRANSFER AT DINNERTIME. PATIENT SETTLED INTO ROOM. PATIENT DENIES PAIN EXCEPT WHEN MOVED. DENIES NAUSEA AND SHORTNESS OF BREATH. NAPPING IN BED, CALL LIGHT IN REACH.
[2019-05-05 06:26] LABS: Anion Gap 1 mmol/L (6-16); Blood Urea Nitrogen 35 mg/dL (8-24); Bun/Creatinine Ratio 44.8 (12.0-20.0); CO2, Blood 36 mmol/L (21-32); Calcium, Blood 8.9 mg/dL (8.5-10.1); Chloride, Blood 102 mmol/L (98-108); Creatinine, Blood 0.78 mg/dL (0.40-1.00); Glomerular Filtration Rate >60 (60-); Glucose, Blood 148 mg/dL (70-99); Potassium, Blood 4.1 mmol/L (3.5-5.5); Sodium, Blood 139 mmol/L (136-145)
--- NOTE | 2019-05-05 07:11 | NUR ---
SHIFT SUMMARY PT BEEN LETHARGIC SLOW TO RESPOND. WORE BIPAP FOR AWHILE BEFORE WANTING NC BACK ON. PALOMINO DRAINING. TELE SHOWED A FIB PER WARPMAN. NC C 3L O2 NC. SHE WAS ABLE TO SLEEP T/O NOC. PAINFUL WHEN REPOSITIONING. BED ALARM IN USE.
--- NOTE | 2019-05-05 17:55 | NUR ---
SHIFT SUMMARY PT AWAKE DURING SHIFT REPORT, BUT SOMEWHAT LETHARGIC AT START OF SHIFT. PT WOKE UP FOR BREAKFAST AND HAS BEEN ALERT AND ORIENTED THE REST OF THE DAY. O2 SATS DROPPED A COUPLE OF TIMES EARLIER IN THE DAY; BIPAP MASK CHANGED OUT AND THEN BIPAP ADJUSTED. PT HAVING DIFFICULTY BREATHING AT ONE POINT, BECOMING DIAPHORETIC. RT CALLED FOR ASSIST AND O2 INCREASED BREIFLY. PT CALMED AFTER RT TX AND BIPAP PLACEMENT. NO FURTHER EPISODES TO PRESENT. BED BATH GIVEN. DRSG CHANGED TO BUTTOCKS/COCCYX BOTH. PALOMINO TO GRAVITY PATENT WITH SEDIMENT. REMAINS IN A-FIB ON TELE. SCD'S ON WITH BLE'S ELEVATED WITH PILLOWS. PT REPOSITIONED THRU OUT THE DAY; FREQUENTLY AT TIMES PER PT REQUEST. CALL LT IN REACH.
--- NOTE | 2019-05-06 17:55 | NUR ---
ALERT. ORIENTED. SOMETIMES DIFFICULT TO UNDERSTAND WHEN SPEAKING. NPO AFTER MIDNITE FOR SURGICAL CONSULT IN AM. PT AWARE. DOES NOT LET STAFF TURN HER, PREFERS TO STAY ON LEFT SIDE. GOOD APPETITE. IV X 2 PATENT. ON 4LPM OXYGEN. WCTM.
--- NOTE | 2019-05-06 19:19 | NUR ---
PATIENT ARRIVES TO FLOOR AROUND 183. AMBULATORY FROM CART TO BED. WOUND LEFT HIP WITH DRESSING. CHECKED. REDNESS AROUND WOUND WITH SOME OOZING PURULENT DISCHARGE. LEFT THIGH LOOKS LITTLE REDDER THAN NORMAL. ALERT. ORIENTED. CAMERA IN ROOM FOR NIGHT RN TO TAKE PICS. IV PATENT. REPORT TO NIGHT RN
--- NOTE | 2019-05-07 03:48 | NUR ---
SHIFT SUMMARY NPO @ MIDNIGHT ORDERED. PRESSURE ULCER DRESSINGS CHANGED. PT TO USE A CPAP AT NIGHT, HOWEVER SHE DOES KEEP TAKING IT OFF - FOLLOWING WHICH SHE DESATURATES TO THE LOW TO MID 80%. PLAN WAS FOR DC, HOWEVER SHE HAS A SURGICAL CONSULT WITH DR CEJA IN THE MORNING AND MAY RECEIVE SURGICAL INTERVENTION FOR HER PRESSURE ULCERS. SURGICAL PACKET IS IN WITH THE PT'S CHART. PALOMINO IS IN PLACE. CONTACT PRECAUTIONS FOR MRSA IN WOUND AND ESBL IN URINE. SHE IS DNI CODE STATUS, CPR AND MEDS ARE OK. IV ANTIBIOTICS GIVEN ORDERED. 4 LPM VIA NC WHEN NOT ON CPAP. HER BASELINE IS 3 LPM AT [facility] WHERE SHE RESIDES.
[2019-05-07 05:13] LABS: Hematocrit 32.1 % (33.0-51.0); Hemoglobin 9.1 g/dL (11.5-16.0); Mean Corpuscular HGB 25.8 pg (26.0-34.0); Mean Corpuscular HGB Conc 28.3 g/dL (31.5-36.5); Mean Corpuscular Volume 91 fL (80-100); Mean Platelet Volume 9.8 fL (9.1-12.4); Platelet Count 283 K/mm3 (150-400); RDW Coefficient Variation 15.9 % (11.7-14.2); RDW Standard Deviation 52.2 fL (35.1-46.3); Red Blood Cell Count 3.53 M/mm3 (3.80-5.20); White Blood Cell Count 7.94 K/mm3 (4.00-11.30)
[2019-05-07 05:36] LABS: Albumin, Blood 2.1 g/dL (3.4-5.0); Anion Gap 5 mmol/L (6-16); Blood Urea Nitrogen 34 mg/dL (8-24); Bun/Creatinine Ratio 50.1 (12.0-20.0); CO2, Blood 34 mmol/L (21-32); Calcium, Blood 8.6 mg/dL (8.5-10.1); Chloride, Blood 102 mmol/L (98-108); Creatinine, Blood 0.68 mg/dL (0.40-1.00); Glomerular Filtration Rate >60 (60-); Glucose, Blood 124 mg/dL (70-99); Phosphorus, Blood 2.6 mg/dL (2.5-4.9); Sodium, Blood 141 mmol/L (136-145)
--- NOTE | 2019-05-07 17:17 | NUR ---
SUMMARY PT RESTING QUIETLY IN BED, HAS THE CPAP MASK IN PLACE, PT HAS BEEN OFF THE CPAP AND ON O2 FOR MOST OF THE DAY, FAMILY HAS BEEN IN TO VISIT, DR MEJIA WAS IN TO SEE THE PT AND DISCUSSED SURGERY WITH THE PT, PLAN IS TO HOLD OFF ON SURGERY FOR NOW, DRESSING TO THE COCCYX AND R BUTTOCK/HIP HAVE BEEN CHANGED, THE COCCYX DRESSING WAS PACKED WITH CALCIUM ALGINATE AND COVERED WITH A FOAM DRESSING THE COCCY/HIP WOUND COVERED WITH A FOAM DRESSING, PT TERRI WELL, PT HAS DENIED PAIN T/O THE DAY, COOPERATIVE WITH CARE, RESISTANT TO TURNING TO THE R SIDE, STAYS MOSTLY ON THE LEFT, PALOMINO DRAINING WELL, VSS, NO ACUTE CHANGES, WILL CONT TO MONITOR
--- NOTE | 2019-05-08 04:18 | NUR ---
SHIFT SUMMARY ADMIT FOR RESP FAILURE W/HYPOXIA. DNI CODE. FROM [facility]. PALOMINO IN PLACE. IV ANTIBIOTIC THERAPY. 4 LPM O2 VIA NC W/CPAP PRN AND AT PM. SKIN TEAR ON RT BUTTOCK W/ESCHAR, PRESSURE ULCER ON COCCYX. DRESSING CHANGES Q SHIFT W/CALCIUM ALGINATE, SKIN PROTECTANT SWAB, AND MEPILEX. SURGICAL CONSULT YESTERDAY ROUNDED ON PT, DR MEJIA. IT WAS DECIDED TO DO DAILY DRESSING CHANGES AND AVOID SURGERY. MECH SOFT/GROUND MEAT DIET. PILLS TAKEN WHOLE W/WATER. BEDBOUND. CONTACT PRECAUTIONS FOR MRSA IN WOUND AND ESBL IN URINE. SMALL BM THIS SHIFT.
[2019-05-08 05:33] LABS: Albumin, Blood 2.3 g/dL (3.4-5.0); Anion Gap 4 mmol/L (6-16); Blood Urea Nitrogen 31 mg/dL (8-24); Bun/Creatinine Ratio 39.1 (12.0-20.0); CO2, Blood 34 mmol/L (21-32); Chloride, Blood 99 mmol/L (98-108); Creatinine, Blood 0.79 mg/dL (0.40-1.00); Glomerular Filtration Rate >60 (60-); Glucose, Blood 107 mg/dL (70-99); Phosphorus, Blood 2.2 mg/dL (2.5-4.9); Potassium, Blood 3.8 mmol/L (3.5-5.5); Sodium, Blood 137 mmol/L (136-145)
[2019-05-08] MEDS ORDERED: Vsl#3 Capsule1 EACH PO (13:47)
[2019-05-08] MEDS ORDERED: MERREM1 GM IV (13:47)
[2019-05-08] MEDS ORDERED: K-Phos Origina500 MG PO (13:48)
[2019-05-08] MEDS ORDERED: ZOSYN IV (13:48)
[2019-05-08] MEDS ORDERED: Prednisone10 MG PO (13:49)
--- NOTE | 2019-05-08 15:34 | NUR ---
REPORT CALLED TO HOMAR AT [facility]. MESSAGE LEFT WITH DAUGHTER DEBBY. WOUND CARE COMPLETED PRIOR TO DISCHARGE AND PHOTOS TAKEN. POWERGLIDE PLACED TO [facility] FOR IV ANTIBITOTICS. PALOMINO KEPT IN PLACE FOR WOUND. [facility] TRANSPORT SCHEDULED FOR 1600.
--- NOTE | 2019-05-08 16:57 | NUR ---
PT DISCHARGED BACK TO [facility] VIA [facility] AT 1656.
== END 2019-05-08 16:57 | DRG 871 ==
LOC: ER 10:38 → ICUW 12:48 → MEDS 12:48 → ICUW 13:49 → MEDS 05-04 17:11
PROVIDERS: Emergency Medicine; Internal Medicine; Nurse Practitioner Acute Care; ADMIT Hospitalist
PROC: 5A09357 Assistance with Respiratory Ventilation, Less than 24 Consecutive Hours, Continuous Positive Airway Pressure (ICD-10-PCS; principal; 2019-05-02)
DX: A41.51 Sepsis due to Escherichia coli [E. coli] (principal); L89.214 Pressure ulcer of right hip, stage 4; L89.154 Pressure ulcer of sacral region, stage 4; J96.21 Acute and chronic respiratory failure with hypoxia; J96.22 Acute and chronic respiratory failure with hypercapnia; G92 Toxic encephalopathy; Z68.43 Body mass index [BMI] 50.0-59.9, adult; J44.1 Chronic obstructive pulmonary disease with (acute) exacerbation; E66.2 Morbid (severe) obesity with alveolar hypoventilation; E03.9 Hypothyroidism, unspecified; Z87.891 Personal history of nicotine dependence; K21.9 Gastro-esophageal reflux disease without esophagitis; Z86.73 Personal history of transient ischemic attack (TIA), and cerebral infarction without residual deficits; Z99.81 Dependence on supplemental oxygen; I48.0 Paroxysmal atrial fibrillation; Z66 Do not resuscitate; I10 Essential (primary) hypertension; Z91.19 Patient's noncompliance with other medical treatment and regimen; Z88.8 Allergy status to other drugs, medicaments and biological substances; Z96.0 Presence of urogenital implants; B96.6 Bacteroides fragilis [B. fragilis] as the cause of diseases classified elsewhere; B95.2 Enterococcus as the cause of diseases classified elsewhere
CPT/HCPCS: 36415; 36600; 51702; 71045; 80048; 80053; 80069; 81001; 82803; 83880; 84145; 84484; 85025; 85027; 87086; 93005; 93010; 94640; 94660; 94762; 96361-59; 96365-59; 96375-59; 99285-25; C9113; J0696; J1650; J2185; J2543; J2930; J7030; J7060; J7512